=== PATIENT | male | born 1990 | race Caucasian/White ===

== ENCOUNTER 2021-02-14 14:36 | Inpatient (IN) | payer OTHER ==
[2021-02-14 17:53] LABS: Appearance,Urine Clear (Clear); Bilirubin,Urine Negative (Negative); Blood,Urine Negative (Negative); Color,Urine Light Yellow; Glucose,Urine (UA) Negative (Negative); Ketones,Urine Negative (Negative); Leukocyte Esterase,Urine Negative (Negative); Nitrite,Urine Negative (Negative); Protein,Urine Negative (Negative); Urobilinogen,Urine <2.0 mg/dL (<2.0)
[2021-02-14 18:02] LABS: Amphetamine Screen,Urine Not Detected (NotDetected); Barbiturate Screen,Urine Not Detected (NotDetected); Benzodiazepines Screen,Urine Not Detected (NotDetected); Cocaine Screen,Urine Not Detected (NotDetected); Methadone Screen, Urine Not Detected (NotDetected); Opiate Screen,Urine Not Detected (NotDetected); Oxycodone Screen, Urine Not Detected (NotDetected); Phencyclidine Screen,Urine Not Detected (NotDetected); Tricyclic Antidepressant,Urine Not Detected (NotDetected); Urn Cannabinoid Scrn Not Detected (NotDetected)
[2021-02-14] MEDS ORDERED: ACETAMINOPHEN TAB 325 MG TAB PO PRN (20:37)
[2021-02-14] MEDS ORDERED: LORazepam 1 MG TAB PO PRN (20:37)
[2021-02-14] MEDS ORDERED: MAGNESIUM HYDROXIDE 2,400 MG/10 ML CUP PO PRN (20:37)
[2021-02-14] MEDS ORDERED: MAG HYDROX/AL HYDROX/SIMETH 30 ML CUP PO PRN (20:37)
[2021-02-14] MEDS ORDERED: LORazepam 2 MG/ML INJ IM PRN (20:45)
[2021-02-14] MEDS ORDERED: haloperidoL 5 MG TAB PO PRN (20:47)
[2021-02-14] MEDS ORDERED: HALOPERIDOL LACTATE 5 MG/ML 1 ML VIAL IM PRN (20:47)
[2021-02-14] MEDS: NICOTINE 21MG/24HR PATCH TRANSDERM SCH (22:19)
--- NOTE | 2021-02-14 22:42 | ED ---
Psych HPI - General Chief Complaint: Psychiatric Symptoms Stated Complaint: Petition Time Seen by Provider: 02/14/21 14:40 Source: patient, police Mode of arrival: ambulatory - History of Present Illness Initial Comments: Patient is a 30-year-old male who presents to the emergency department petitioned by his mother. Police accompany the patient. Patient made some remarks last night while drinking. Stated he was suicidal without plan. 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 He does have a history of daily alcohol use. Patient does report that he uses alcohol to "cope". He is currently sober and denying suicidal ideations to me. Denies homicidal ideations. No history of drug use. Patient denies attempting to harm himself. No other alleviating, precipitating or modifying factors - Related Data Home Medications Medication Instructions Recorded Confirmed No Known Home Medications 02/14/21 02/14/21 Allergies Allergy/AdvReac Type Severity Reaction Status Date / Time No Known Allergies Allergy Verified 02/14/21 16:03 Review of Systems ROS Statement: Those systems with pertinent positive or pertinent negative responses have been documented in the HPI. ROS Other: All systems not noted in ROS Statement are negative. Past Medical History Past Medical History: No Reported History History of Any Multi-Drug Resistant Organisms: None Reported Past Surgical History: Orthopedic Surgery Additional Past Surgical History / Comment(s): trauma surgery from accident Past Anesthesia/Blood Transfusion Reactions: No Reported Reaction Past Psychological History: Anxiety Smoking Status: Current every day smoker Past Alcohol Use History: Daily Past Drug Use History: None Reported General Exam Limitations: no limitations General appearance: alert, in no apparent distress, other (desheveled) Head exam: Present: atraumatic, normocephalic, normal inspection Eye exam: Present: normal appearance, PERRL, EOMI. Absent: scleral icterus, conjunctival injection, periorbital swelling ENT exam: Present: normal exam, mucous membranes moist Neck exam: Present: normal inspection. Absent: tenderness, meningismus, lymphadenopathy Respiratory exam: Present: normal lung sounds bilaterally. Absent: respiratory distress, wheezes, rales, rhonchi, stridor Cardiovascular Exam: Present: regular rate, normal rhythm, normal heart sounds. Absent: systolic murmur, diastolic murmur, rubs, gallop, clicks GI/Abdominal exam: Present: soft, normal bowel sounds. Absent: distended, tenderness, guarding, rebound, rigid Extremities exam: Present: normal inspection, full ROM, normal capillary refill. Absent: tenderness, pedal edema, joint swelling, calf tenderness Back exam: Present: normal inspection Neurological exam: Present: alert, oriented X3, CN II-XII intact Psychiatric exam: Present: normal affect, normal mood Skin exam: Present: warm, dry, intact, normal color. Absent: rash Course Vital Signs 02/14/21 14:41 Temperature 98.8 F Pulse Rate 93 Respiratory 18 Rate Blood Pressure 165/87 O2 Sat by Pulse 97 Oximetry Medical Decision Making - Medical Decision Making Upon arrival patient is placed into room 8. A thorough history and physical exam was performed. Patient is evaluated by EPS and they determined that the patient requires inpatient placement. I did fill out a certification on the patient. Patient was taken to the floor in stable condition - Lab Data Result diagrams: 02/15/21 06:39 02/15/21 06:39 Lab Results 02/14/21 02/14/21 Range/Units 17:47 19:23 Urine Color Light Yellow Urine Appearance Clear (Clear) Urine pH 7.0 (5.0-8.0) Ur Specific [place] 1.000 L (1.001-1.035) Urine Protein Negative (Negative) Urine Glucose (UA) Negative (Negative) Urine Ketones Negative (Negative) Urine Blood Negative (Negative) Urine Nitrite Negative (Negative) Urine Bilirubin Negative (Negative) Urine Urobilinogen <2.0 (<2.0) mg/dL Ur Leukocyte Esterase Negative (Negative) Urine Opiates Screen Not Detected (NotDetected) Ur Oxycodone Screen Not Detected (NotDetected) Urine Methadone Screen Not Detected (NotDetected) Ur Propoxyphene Screen Not Detected (NotDetected) Ur Barbiturates Screen Not Detected (NotDetected) U Tricyclic Antidepress Not Detected (NotDetected) Ur Phencyclidine Scrn Not Detected (NotDetected) Ur Amphetamines Screen Not Detected (NotDetected) U Methamphetamines Scrn Not Detected (NotDetected) U Benzodiazepines Scrn Not Detected (NotDetected) Urine Cocaine Screen Not Detected (NotDetected) U Marijuana (THC) Screen Not Detected (NotDetected) Coronavirus (PCR) Not Detected (Not Detectd) Disposition Clinical Impression: Depression Disposition: TRANSFER TO PSYCH HOSP/UNIT Condition: Stable Is patient prescribed a controlled substance at d/c from ED?: No Decision to Admit Reason: Admit from EC
--- NOTE | 2021-02-15 02:43 | P.CONS ---
History of Present Illness - Reason for Consult Consult date: 02/15/21 - History of Present Illness Patient is a 30-year-old male with a PMH of EtOH abuse who was brought into the hospital by his mother after he was the patient due to some suicidal remarks. Patient was admitted to the mental health unit where he was seen and evaluated. He reports daily alcohol use, as much as a liter of hard liquor at a time. He denied alcohol withdrawal seizures or ever being hospitalized for his drinking. He reports that his last drink was earlier in the day. Denied additional complaints. Denied chest pain, shortness breath, fever, chills, cough, nausea, vomiting, abdominal pain. Review of Systems Pertinent positives and negatives as discussed in HPI, a complete review of systems was performed and all other systems are negative. Past Medical History Past Medical History: No Reported History History of Any Multi-Drug Resistant Organisms: None Reported Past Surgical History: Orthopedic Surgery Additional Past Surgical History / Comment(s): trauma surgery from accident Past Anesthesia/Blood Transfusion Reactions: No Reported Reaction Past Psychological History: Anxiety Smoking Status: Current every day smoker Past Alcohol Use History: Daily Past Drug Use History: None Reported Medications and Allergies Home Medications Medication Instructions Recorded Confirmed Type No Known Home Medications 02/14/21 02/14/21 History Allergies Allergy/AdvReac Type Severity Reaction Status Date / Time No Known Allergies Allergy Verified 02/14/21 16:03 Physical Exam Vitals: Vital Signs Temp Pulse Pulse Resp BP BP Pulse Ox 02/14/21 21:31 98.6 F 79 18 143/81 02/14/21 14:41 98.8 F 93 18 165/87 97 Intake and Output 02/14/21 02/14/21 02/15/21 14:59 22:59 06:59 Other: Weight 75.75 kg 75 kg General: Disheveled male, non toxic, no distress, appears older than stated age, normal weight Derm: no unusual rashes/lesions no unusual ecchymoses, warm, dry Head: atraumatic, normocephalic, symmetric Eyes: EOMI, no lid lag, anicteric sclera, pupils equal round reactive to light ENT: Nose and ears atraumatic, no thrush, no pharyngeal erythema Neck: No thyromegaly, no cervical lymphadenopathy, trachea midline, supple Mouth: no lip lesion, mucus membranes moist Cardiovascular: S1S2 reg, no murmur, positive posterior tibial pulse bilateral, no edema, capillary refill less than 2 seconds Lungs: CTA bilateral, no rhonchi, no rales , no accessory muscle use Abdominal: soft, nontender to palpation, no guarding, no appreciable organomegaly, normal bowel sounds Ext: no gross muscle atrophy, muscle strength 5 out of 5 in all 4 extremities grossly, no contractures, Neuro: CN II-XI grossly intact, light touch intact all 4 extremities, mild outstretched hand tremor Psych: Alert, oriented, appropriate affect Results Labs: Abnormal Lab Results - Last 24 Hours (Table) 02/14/21 Range/Units 17:47 Ur Specific [place] 1.000 L (1.001-1.035) Assessment and Plan Plan: EtOH abuse, impending withdrawal -C/w [facility] protocol -Start Librium -Monitor electrolytes -Encourage oral fluid intake -Thiamine, MV -Advised on the importance of cessation Depression and suicidal ideation -As per psychiatry Thank you for allowing us to participate in the care of this patient. We will follow peripherally. Do not hesitate to contact us with questions. Someone can be reached from the [facility] hospitalist group at all hours of the day at [phone].
[2021-02-15 07:22] LABS: Basophils # (A) 0.1 k/uL (0-0.2); Basophils % (A) 1 %; Eosinophils # (A) 0.4 k/uL (0-0.7); Eosinophils % (A) 7 %; HCT 48.2 % (39.0-53.0); HGB 16.8 gm/dL (13.0-17.5); Lymphocytes # (A) 2.2 k/uL (1.0-4.8); Lymphocytes % (A) 36 %; MCH 32.3 pg (25.0-35.0); MCHC 34.8 g/dL (31.0-37.0); MCV 92.9 fL (80.0-100.0); Mean Platelet Volume 7.2; Monocytes # (A) 0.6 k/uL (0-1.0); Monocytes % (A) 10 %; Neutrophils # (A) 2.7 k/uL (1.3-7.7); Neutrophils % (A) 44 %; Platelet Count 215 k/uL (150-450); RBC 5.19 m/uL (4.30-5.90); RDW 12.6 % (11.5-15.5); WBC 6.2 k/uL (3.8-10.6)
[2021-02-15 07:47] LABS: ALT 9 U/L (4-49); AST 33 U/L (17-59); African American GFR (CKD) >90 (>60 ml/min/1.73 sqM); Albumin 4.3 g/dL (3.5-5.0); Alkaline Phosphatase 101 U/L (38-126); Anion Gap 7 mmol/L; Blood Urea Nitrogen 9 mg/dL (9-20); Calcium 9.7 mg/dL (8.4-10.2); Carbon Dioxide 28 mmol/L (22-30); Chloride 102 mmol/L (98-107); Glucose 93 mg/dL (74-99); Magnesium 2.1 mg/dL (1.6-2.3); Non-African American GFR(CKD) >90 (>60 ml/min/1.73 sqM); Potassium 4.2 mmol/L (3.5-5.1); Sodium 137 mmol/L (137-145); Total Bilirubin 1.3 mg/dL (0.2-1.3); Total Protein 6.8 g/dL (6.3-8.2)
[2021-02-15] MEDS: MULTIVITAMINS, THERA 1 EACH TAB PO SCH (07:52)
[2021-02-15] MEDS: THIAMINE 100 MG TAB PO SCH (07:52)
[2021-02-15] MEDS: NICOTINE 21MG/24HR PATCH TRANSDERM SCH (07:52)
[2021-02-15 07:57] VITALS: BMI 22.6
[2021-02-15] MEDS ORDERED: chlordiazePOXIDE 25 MG CAP PO SCH ×2 (09:00→13:00)
[2021-02-15] MEDS: QUEtiapine 25 MG TAB PO SCH (12:24)
[2021-02-15] MEDS ORDERED: hydrOXYzine pamoate 25 MG CAP PO PRN (13:19)
--- NOTE | 2021-02-15 13:19 | P.HP ---
Psychiatric H&P - . H&P Date: 02/15/21 History & Physical: Allergies Allergy/AdvReac Type Severity Reaction Status Date / Time No Known Allergies Allergy Verified 02/14/21 16:03 Vital Signs Temp 97.3 F L 02/15/21 07:53 Pulse 130 H 02/15/21 07:53 Resp 18 02/14/21 21:31 BP 136/83 02/15/21 07:53 Pulse Ox 97 02/14/21 14:41 Intake & Output 02/14/21 02/15/21 02/15/21 18:59 06:59 18:59 Weight 75.75 kg 75 kg 75.75 kg Laboratory Last Values WBC 6.2 k/uL (3.8-10.6) 02/15/21 06:39 RBC 5.19 m/uL (4.30-5.90) 02/15/21 06:39 Hgb 16.8 gm/dL (13.0-17.5) 02/15/21 06:39 Hct 48.2 % (39.0-53.0) 02/15/21 06:39 MCV 92.9 fL (80.0-100.0) 02/15/21 06:39 MCH 32.3 pg (25.0-35.0) 02/15/21 06:39 MCHC 34.8 g/dL (31.0-37.0) 02/15/21 06:39 RDW 12.6 % (11.5-15.5) 02/15/21 06:39 Plt Count 215 k/uL (150-450) 02/15/21 06:39 MPV 7.2 02/15/21 06:39 Neutrophils % 44 % 02/15/21 06:39 Lymphocytes % 36 % 02/15/21 06:39 Monocytes % 10 % 02/15/21 06:39 Eosinophils % 7 % 02/15/21 06:39 Basophils % 1 % 02/15/21 06:39 Neutrophils # 2.7 k/uL (1.3-7.7) 02/15/21 06:39 Lymphocytes # 2.2 k/uL (1.0-4.8) 02/15/21 06:39 Monocytes # 0.6 k/uL (0-1.0) 02/15/21 06:39 Eosinophils # 0.4 k/uL (0-0.7) 02/15/21 06:39 Basophils # 0.1 k/uL (0-0.2) 02/15/21 06:39 Sodium 137 mmol/L (137-145) 02/15/21 06:39 Potassium 4.2 mmol/L (3.5-5.1) 02/15/21 06:39 Chloride 102 mmol/L (98-107) 02/15/21 06:39 Carbon Dioxide 28 mmol/L (22-30) 02/15/21 06:39 Anion Gap 7 mmol/L 02/15/21 06:39 BUN 9 mg/dL (9-20) 02/15/21 06:39 Creatinine 1.07 mg/dL (0.66-1.25) 02/15/21 06:39 Est GFR (CKD-EPI)AfAm >90 (>60 ml/min/1.73 sqM) 02/15/21 06:39 Est GFR (CKD-EPI)NonAf >90 (>60 ml/min/1.73 sqM) 02/15/21 06:39 Glucose 93 mg/dL (74-99) 02/15/21 06:39 Calcium 9.7 mg/dL (8.4-10.2) 02/15/21 06:39 Magnesium 2.1 mg/dL (1.6-2.3) 02/15/21 06:39 Total Bilirubin 1.3 mg/dL (0.2-1.3) 02/15/21 06:39 AST 33 U/L (17-59) 02/15/21 06:39 ALT 9 U/L (4-49) 02/15/21 06:39 Alkaline Phosphatase 101 U/L (38-126) 02/15/21 06:39 Total Protein 6.8 g/dL (6.3-8.2) 02/15/21 06:39 Albumin 4.3 g/dL (3.5-5.0) 02/15/21 06:39 TSH 2.220 mIU/L (0.465-4.680) 02/15/21 06:39 Urine Color Light Yellow 02/14/21 17:47 Urine Appearance Clear (Clear) 02/14/21 17:47 Urine pH 7.0 (5.0-8.0) 02/14/21 17:47 Ur Specific [place] 1.000 (1.001-1.035) L 02/14/21 17:47 Urine Protein Negative (Negative) 02/14/21 17:47 Urine Glucose (UA) Negative (Negative) 02/14/21 17:47 Urine Ketones Negative (Negative) 02/14/21 17:47 Urine Blood Negative (Negative) 02/14/21 17:47 Urine Nitrite Negative (Negative) 02/14/21 17:47 Urine Bilirubin Negative (Negative) 02/14/21 17:47 Urine Urobilinogen <2.0 mg/dL (<2.0) 02/14/21 17:47 Ur Leukocyte Esterase Negative (Negative) 02/14/21 17:47 Urine Opiates Screen Not Detected (NotDetected) 02/14/21 17:47 Ur Oxycodone Screen Not Detected (NotDetected) 02/14/21 17:47 Urine Methadone Screen Not Detected (NotDetected) 02/14/21 17:47 Ur Propoxyphene Screen Not Detected (NotDetected) 02/14/21 17:47 Ur Barbiturates Screen Not Detected (NotDetected) 02/14/21 17:47 U Tricyclic Antidepress Not Detected (NotDetected) 02/14/21 17:47 Ur Phencyclidine Scrn Not Detected (NotDetected) 02/14/21 17:47 Ur Amphetamines Screen Not Detected (NotDetected) 02/14/21 17:47 U Methamphetamines Scrn Not Detected (NotDetected) 02/14/21 17:47 U Benzodiazepines Scrn Not Detected (NotDetected) 02/14/21 17:47 Urine Cocaine Screen Not Detected (NotDetected) 02/14/21 17:47 U Marijuana (THC) Screen Not Detected (NotDetected) 02/14/21 17:47 Coronavirus (PCR) Not Detected (Not Detectd) 02/14/21 19:23 02/15/21 13:07 IDENTIFYING DATA: Patient is a 30-year-old male who is currently engaged has 1 son and his currently unemployed. HPI: Patient presented to the hospital yesterday and was brought in by the police as he was petitioned by his mother. According to petition mother had claimed that patient had made threats to harm himself and also has access to guns. According to ER report patient was suicidal and mother had called the police on him to bring him into the hospital. Patient apparently has been drinking alcohol daily. Patient's UDS and UA were negative. Patient was seen today and agreeable to speak to newspaper writer in the office and appeared to have poor hygiene and grooming. Patient was fairly irritable and agitated during conversation and repeatedly asked to be discharged. He had poor insight into his need for treatment and his condition. He was fairly tangential and had racing thoughts. He spoke about having several stressors recently in his life including not having a job for the past few months and also dealing with re lationship issues with his fiance and her mother. He claims that his mother "took away my rights" by putting him in the hospital and states that what she wrote in the petition was false. He claims that "she's twisting the story" and was fairly angry and upset about being admitted. He claims that he is drinking alcohol heavily for the past year approximately 1-6 beers a day and also takes several shots if he is drinking liquor. He claims that he is having withdrawal symptoms including anxiety and mild tremors. He states that he is using alcohol to "cope with my stressors". He claims that his mood is "agitated" and admits to irritability. He states that he has been sleeping "on and off" has a fair appetite. He does admit to having racing thoughts. He claims that he cannot trust anyone at this time including [facility] and at one point during the interview he turned to the security camera in the corner and gave it the middle finger. Patient denies any current suicidal or homicidal ideations intent or plan. At this time patient denies any auditory or visual hallucinations. Patient admits to using no recreational drugs however he does use cigarettes and alcohol as noted above. PAST PSYCHIATRIC HISTORY: Patient was fairly guarded about his psychiatric history. He states that he has been on medications in the past however does not remember which ones. He did state that he was admitted to a psychiatric hospital when he was 17 however cannot remember where. Patient denies any psychiatric outpatient follow-up. Patient denies any history of suicide attempts in the past. PMH:denies ALLERGIES: as per EMR CHEMICAL DEPENDENCY HISTORY: as per HPI FAMILY PSYCHIATRIC/SUBSTANCE USE HISTORY: He states that his father has bipolar disorder SOCIAL HISTORY: Patient was born and raised in [place], [place]. He states that he completed high school and also did trade school. He states that he has some drinking related offenses and spent a few days in residential in the past. He claims he has one son is currently engaged and is unemployed and used to be a catering truck driver. MENTAL STATUS EXAM: General Appearance: Patient appears to be tall, thin, stated age is alert, irritable and agitated at times. Long vaz, Patient appears to have poor hygiene and grooming. Behavior: Patient is seated, agitated and upset. Speech: Patient's speech is loud at times. Rambles. Mood/Affect: Patient reports their mood is "fine", affect is incongruent and labile Suicidality/Homicidality: Patient denies having any homicidal ideation intent or plan. Denies any suicidal ideations intent or plan Perceptions: Patient denies any visual hallucinations and denies any auditory hallucinations Though content/process: Rambles, tangential, preoccupied with discharge and minimizing his need for treatment. Not endorsing any delusions. Memory and concentration: AOX3, grossly intact for the purposes of this session. Can spell "WORLD" backwards Judgment and insight: poor STRENGTHS/WEAKNESSES: strength is that patient is resilient. Weakness is that patient has poor judgment and is impulsive INTELLECT: average IMPRESSIONS: Mood disorder unspecified, rule out bipolar disorder versus substance induced mood disorder Alcohol use disorder, currently in withdrawal Nicotine dependence PLAN: -Patient is admitted under involuntary status to MHU for stabilization of psychiatric symptoms and safety. Patient has signed medication consent and is placed in patient's chart. A second certification was completed and along with petition will be filed for court. -Medications : Will start patient on Librium 20 mg 4 times a day for alcohol withdrawal, this can be tapered over the weekend. Seroquel 25 mg daily +50 mg daily at bedtime for mood stabilization. Vistaril when necessary for anxiety. -Ativan and Haldol PRN for agitation/aggression -Started thiamine, MVM for etoh use -CIWA protocol with Ativan PRN for ETOH withdrawal -Patient was counselled on substance abuse and desired to cut back on use -Patient was informed of the risks, benefits and side effects of the medication and patient verbally consented to taking the medications. Patient signed med consent form and was placed in chart. -Internal Medicine consult to perform medical evaluation and physical. -NRT - nicotine patch -SW on board for discharge planning. Encourage patient to participate in groups to work on coping skills. Will await deferral and court date.
[2021-02-15] MEDS: QUEtiapine 50 MG TAB PO SCH (21:19)
[2021-02-16] MEDS: NICOTINE 21MG/24HR PATCH TRANSDERM SCH (08:43)
[2021-02-16] MEDS: QUEtiapine 25 MG TAB PO SCH (08:43)
[2021-02-16] MEDS: THIAMINE 100 MG TAB PO SCH (08:43)
[2021-02-16] MEDS: MULTIVITAMINS, THERA 1 EACH TAB PO SCH (08:43)
[2021-02-16] MEDS: FOLIC ACID 1 MG TAB PO SCH (08:43)
--- NOTE | 2021-02-16 15:51 | P.PN ---
Progress Note - Text Progress Note Date: 02/16/21 Clinical Problems: Unspecified mood disorder, alcohol induced mood disorder, rule out bipolar disorder current episode depressed, alcohol use disorder severe, alcohol withdrawal, rule out alcohol withdrawal delirium, tobacco use disorder Interim history: I reviewed the medical record and interviewed the patient. He is 30-year-old single male admitted to psychiatric unit involuntarily with a petition completed by his mother documenting suicidal ideation. He minimizes circumstances leading to this hospitalization and repeatedly denied that he had attempted suicide. He gave a circumstantial and disjointed explanation where he was talking about suicide as a way of prove to himself that he is not suicidal. He also minimizes severity of his alcohol use although during the conversation it was apparent that much of his interpersonal and employment difficulties are related to his alcohol use. He denies that he has thoughts of suicide or self-harm. He denied wishes. He denied feeling depressed. He feels anxious and expressed concern about how others perceive him and described his struggles with expressing himself in a manner that others would understand him. He complained of some sedation from the initial doses of Seroquel. He denies alcohol withdrawal symptoms. His CIWA scores has ranged from 0-5 consistent with minimal alcohol withdrawal symptoms. Mental status exam: He presented as a tall, thin casually groomed male who was pleasant on approach. He made eye contact and attended to the interview. He was somewhat restless but showed no abnormal involuntary movements. His speech was spontaneous with slight increase in rate and rhythm. He was anxious. He denies suicidal ideation, wishes or homicidal ideation. Denied feeling hopeless, helpless or worthless. He ruminated about the circumstances that led to this hospitalization and obsessed on how we are perceiving him. He did not express ideas reference, paranoid ideation or delusions. Her sticking was concrete and associations were coherent and logical. He denied hallucinations did not appear to responding to internal stimuli. Assessment: He is denying the severity of circumstances looked this hospitalization but appears anxious and restless. Plan: Continue inpatient treatment. Safety precautions. Continue Librium 20 mg 4 times a day, Seroquel 25 mg daily and 50 mg at bedtime, multivitamins, folic acid and vitamin B1. Haldol and/or Ativan for anxiety, agitation acute psychosis. Continue to monitor for signs and symptoms of alcohol withdrawal. Encourage participation in therapeutic groups and activities. Evaluate clinical status response to treatment daily basis.
[2021-02-16] MEDS: QUEtiapine 50 MG TAB PO SCH (22:00)
[2021-02-17] MEDS: NICOTINE 21MG/24HR PATCH TRANSDERM SCH (08:35)
[2021-02-17] MEDS: FOLIC ACID 1 MG TAB PO SCH (08:36)
[2021-02-17] MEDS: QUEtiapine 25 MG TAB PO SCH (08:36)
[2021-02-17] MEDS: MULTIVITAMINS, THERA 1 EACH TAB PO SCH (08:36)
[2021-02-17] MEDS: THIAMINE 100 MG TAB PO SCH (08:38)
--- NOTE | 2021-02-17 15:55 | P.PN ---
Progress Note - Text Progress Note Date: 02/17/21 Clinical Problems: Unspecified mood disorder, alcohol induced mood disorder, rule out bipolar disorder current episode depressed, alcohol use disorder severe, alcohol withdrawal, rule out alcohol withdrawal delirium, tobacco use disorder Interim history: I reviewed the medical record and interviewed the patient. He denied feeling depressed or having thoughts of or suicide. He continues to maintain that he was not suicidal and that her actions were misinterpreted. His only concern was discharge and is concerned about work and finances. He denies alcohol withdrawal symptoms. His CIWA scores have been 0 over the last 24 hours. He is attending therapeutic groups and activities. He is posed no management problem and had no episodes of behavioral dyscontrol. Mental status exam: He presented as a tall, thin casually groomed male who was pleasant on approach. He made eye contact and attended to the interview. He was somewhat restless but showed no abnormal involuntary movements. His speech was spontaneous with slight increase in rate and rhythm. He was anxious. He denies suicidal ideation, wishes or homicidal ideation. He denied feeling hopeless, helpless or worthless. He continues to ruminate about the circumstances that led to this hospitalization and obsessed on how we are perceiving him. He did not express ideas reference, paranoid ideation or delusions. Her sticking was concrete and associations were coherent and logical. He denied hallucinations did not appear to responding to internal stimuli. Assessment: He is having no symptoms of alcohol withdrawal. He continues to deny that he expressed true suicide attempt. I don't see indication for prescription of antidepressant at this time. Plan: Continue inpatient treatment. Safety precautions. Continue Librium 20 mg 4 times a day, Seroquel 25 mg daily and 50 mg at bedtime, multivitamins, folic acid and vitamin B1. Haldol and/or Ativan for anxiety, agitation acute psychosis. Continue to monitor for signs and symptoms of alcohol withdrawal. Encourage participation in therapeutic groups and activities. Evaluate clinical status response to treatment daily basis.
[2021-02-17] MEDS: QUEtiapine 50 MG TAB PO SCH (20:52)
[2021-02-18 07:09] VITALS: RESP 16
[2021-02-18] MEDS: MULTIVITAMINS, THERA 1 EACH TAB PO SCH (07:49)
[2021-02-18] MEDS: THIAMINE 100 MG TAB PO SCH (07:49)
[2021-02-18] MEDS: NICOTINE 21MG/24HR PATCH TRANSDERM SCH (07:49)
[2021-02-18] MEDS: QUEtiapine 25 MG TAB PO SCH (07:49)
[2021-02-18] MEDS: FOLIC ACID 1 MG TAB PO SCH (07:49)
--- NOTE | 2021-02-18 10:26 | P.PN ---
Progress Note - Text Progress Note Date: 02/18/21 Interval History: Patient was seen taking part in group this morning and was directable and agre eable to speak with commercial underwriter in the office. Patient spoke briefly about group and also by this weekend and states that he is doing better. He continues to ramble and is tangential however is more logical and appropriate today. He states that he is feeling calmer and claims that he spoke with his father and his mother over the phone over the weekend. He claims that he is an able to handle a situa tion a little bit better and did not get too stressed out when his father told him that she had not been feeding his cows enough hay. Patient states that he was able to calm down and not worry about it during the day. He states that the Seroquel has been helping him sleep throughout the night and claims that the first day he took it he was feeling fairly sedated during the day however now feels a bit better. He denies any current anxiety today. He states that his alcohol withdrawal symptoms and been fairly mild. He claims that he has been eating fairly. At this time patient denies any suicidal or homical ideations, intent or plan. Patient denies any auditory, visual hallucinations and denies any paranoia or delusions. Patient denies any side effects from the medications and has been compliant with meds. Mental Status Exam: General Appearance: Patient appears to be tall, thin, stated age is alert, less irritable today and more appropriate. Long vaz, Patient appears to have im proving hygiene and grooming. Behavior: Patient is seated, no agitation today. Speech: Patient's speech is nonpressured. Rambles. Mood/Affect: Patient reports their mood is "better", affect is congruent and less labile Suicidality/Homicidality: Patient denies having any homicidal ideation intent or plan. Denies any suicidal ideations intent or plan Perceptions: Patient denies any visual hallucinations and denies any auditory hallucinations Though content/process: Rambles, tangential, Not endorsing any delusions. Memory and concentration: AOX3, grossly intact for the purposes of this session Judgment and insight: Improving mildly Assessment Mood disorder unspecified, rule out bipolar disorder versus substance induced mood disorder Alcohol use disorder, currently in withdrawal Nicotine dependence Plan: -Patient continues to meet criteria for inpatient psychiatric admission for symptom stabilization and safety. Patient has not signed adult voluntary form and was placed in patient's chart. -Medications: Will decrease Librium 10 mg 4 times a day for alcohol withdrawal and continue to taper. continue with Seroquel 25 mg daily +50 mg daily at bedtime for mood stabilization. Vistaril when necessary for anxiety. -When necessary Ativan and Haldol for agitation/aggression. -thiamine, MVM for etoh use -CIWA protocol with Ativan PRN for ETOH withdrawal -NRT - nicotine patch -SW on board for discharge planning. Encouraged the patient to participate in milieu. Still awaiting deferral and full court hearing date. likely d/c in 1-2 days back home.
[2021-02-18] MEDS: QUEtiapine 50 MG TAB PO SCH (21:22)
[2021-02-19 04:19] VITALS: BP 124/79; PULSE 84; TEMP 97.3
[2021-02-19] MEDS: QUEtiapine 25 MG TAB PO SCH (08:35)
[2021-02-19] MEDS: FOLIC ACID 1 MG TAB PO SCH (08:35)
[2021-02-19] MEDS: MULTIVITAMINS, THERA 1 EACH TAB PO SCH (08:35)
[2021-02-19] MEDS: THIAMINE 100 MG TAB PO SCH (08:35)
[2021-02-19] MEDS: NICOTINE 21MG/24HR PATCH TRANSDERM SCH (08:35)
--- NOTE | 2021-02-19 10:02 | P.DS ---
Providers Date of admission: 02/14/21 20:29 Expected date of discharge: 02/19/21 Attending physician: Rajinder Frank MD Consults: 02/14/21 20:37 Consult Physician Routine Consulting Provider: Thiago Bhandari Consult Reason/Comments: medical management/H&P Do you want consulting provider notified?: Yes Primary care physician: Stated None - Discharge Diagnosis(es) (1) Unspecified mood [affective] disorder Current Visit: Yes Status: Acute Priority: High (2) Alcohol use disorder Current Visit: Yes Status: Acute Priority: High (3) Nicotine dependence Current Visit: Yes Status: Acute Priority: Low Hospital Course: Admission HPI: Admission note was completed by public relations writer "Patient is a 30-year-old male who is currently engaged has 1 son and his currently unemployed. Patient presented to the hospital yesterday and was brought in by the police as he was petitioned by his mother. According to petition mother had claimed that patient had made threats to harm himself and also has access to guns. According to ER report patient was suicidal and mother had called the police on him to bring him into the hospital. Patient apparently has been drinking alcohol daily. Patient's UDS and UA were negative. Patient was seen today and agreeable to speak to public relations writer in the office and appeared to have poor hygiene and grooming. Patient was fairly irritable and agitated during conversation and repeatedly asked to be discharged. He had poor insight into his need for treatment and his condition. He was fairly tangential and had racing thoughts. He spoke about having several stressors recently in his life including not having a job for the past few months and also dealing with relationship issues with his fiance and her mother. He claims that his mother "took away my rights" by putting him in the hospital and states that what she wrote in the petition was false. He claims that "she's twisting the story" and was fairly angry and upset about being admitted. He claims that he is drinking alcohol heavily for the past year approximately 1-6 beers a day and also takes several shots if he is drinking liquor. He claims that he is having withdrawal symptoms including anxiety and mild tremors. He states that he is using alcohol to "cope with my stressors". He claims that his mood is "agitated" and admits to irritability. He states that he has been sleeping "on and off" has a fair appetite. He does admit to having racing thoughts. He claims that he cannot trust anyone at this time including [facility] and at one point during the interview he turned to the security camera in the corner and gave it the middle finger. Patient denies any current suicidal or homicidal ideations intent or plan. At this time patient denies any auditory or visual hallucinations. Patient admits to using no recreational drugs however he does use cigarettes and alcohol as noted above." Hospital course: Upon admission to the unit patient was initially irritable and agitated and made suicidal statements. Patient was however admitted involuntarily and met with his claim attorney on 02/18/21 and signed a deferral and agreed with treatment. Patient got along well with other patients on the unit and followed unit protocol. Patient was compliant with the medications and denied any side effects throughout hospital course. Patient was started on Seroquel 25 mg daily +50 mg daily at bedtime for mood stabilization/insomnia. Patient was placed on Librium scheduled with a taper over his hospitalization for alcohol withdrawal. patient was also on CIWA protocol with ativan prn for etoh withdrawal. Patient spoke of his stressors and engaged in therapy both group and individual. Patient was also seen by medical team for history and physical exam. Throughout the course of the hospitalization patient gradually improved with regards to mood lability, anxiety, sleep and became more future oriented with improved insight and judgment. On the day of discharge patient denied any suicidal or homicidal ideations intent or plan denied any auditory or visual hallucinations. Patient endorsed wanting to live for his health and family. The patient does have guns at home however patient claims he will be turning them over to his parents for safekeeping. Patient denied any paranoia and did not endorse any delusions. Patient does have a significant history of substance abuse and was counseled on abstaining from all substances including alcohol and marijuana. Patient was offered however declined inpatient substance-abuse rehab. Patient elected to do outpatient substance use treatment program through [facility]. Patient was also counseled on the medications and need for regular compliance and was encouraged to follow-up with their outpatient appointment for mental health and also for primary care. Prior to discharge a family meeting will be arranged by social service agency director to answer any questions and ensure safety upon discharge. box worker also to ensure that patients guns are kept locked away and safe. Mental status exam: General Appearance: Patient appears to be tall and thin stated age is alert, pleasant, and cooperative. Patient is in no acute distress and has improved hygiene and grooming. Long vaz. Behavior: Patient is calmly seated without any agitated behavior. Speech: Patient's speech is fluent and nonpressured. Mood/Affect: Patient reports their mood is "better", affect is congruent and euthymic. Suicidality/Homicidality: Patient denies having any suicidal or homicidal ideation intent or plan. Perceptions: Patient denies any auditory or visual hallucinations. Though content/process: There is no evidence of any delusional thought content and thought process is linear and goal-directed. more future oriented Memory and concentration: AOX3, grossly intact for the purposes of this session. Can spell "WORLD" backwards correctly. Judgment and insight: improved with guarded prognosis Impression: Mood disorder unspecified, rule out bipolar disorder versus substance-induced mood disorder Alcohol use disorder Nicotine dependence Plan: -Continue with discharge today as patient has improved and stabilized psychiatrically and is not currently an imminent threat to himself and/or others. -Continue medications: Seroquel 25 mg daily +50 mg daily at bedtime for mood stabilization. -Patient was counseled on the need for medication compliance and appropriate follow-up at mental health and also primary care for medical issues. Patient ve rbalized understanding and agreed. -Social work to arrange for and conduct family meeting to ensure safety upon discharge and answer any questions/concerns. Social work also to arrange for patients follow up appointments with [facility] for psychiatric care along with follow up with primary care provider. -Patient counseled on abstaining from recreational drugs and marijuana and alcohol. Was informed/educated on the adverse effects on their physical and mental health. Patient verbally agreed and understood. Patient was offered substance abuse treatment however declined at this time. -Patient was instructed to return to the hospital or seek immediate medical care if their psychiatric or medical symptoms do worsen or reoccur. Allergies Allergy/AdvReac Type Severity Reaction Status Date / Time No Known Allergies Allergy Verified 02/14/21 16:03 Laboratory Results WBC 6.2 k/uL (3.8-10.6) 02/15/21 06:39 RBC 5.19 m/uL (4.30-5.90) 02/15/21 06:39 Hgb 16.8 gm/dL (13.0-17.5) 02/15/21 06:39 Hct 48.2 % (39.0-53.0) 02/15/21 06:39 MCV 92.9 fL (80.0-100.0) 02/15/21 06:39 MCH 32.3 pg (25.0-35.0) 02/15/21 06:39 MCHC 34.8 g/dL (31.0-37.0) 02/15/21 06:39 RDW 12.6 % (11.5-15.5) 02/15/21 06:39 Plt Count 215 k/uL (150-450) 02/15/21 06:39 MPV 7.2 02/15/21 06:39 Neutrophils % 44 % 02/15/21 06:39 Lymphocytes % 36 % 02/15/21 06:39 Monocytes % 10 % 02/15/21 06:39 Eosinophils % 7 % 02/15/21 06:39 Basophils % 1 % 02/15/21 06:39 Neutrophils # 2.7 k/uL (1.3-7.7) 02/15/21 06:39 Lymphocytes # 2.2 k/uL (1.0-4.8) 02/15/21 06:39 Monocytes # 0.6 k/uL (0-1.0) 02/15/21 06:39 Eosinophils # 0.4 k/uL (0-0.7) 02/15/21 06:39 Basophils # 0.1 k/uL (0-0.2) 02/15/21 06:39 Sodium 137 mmol/L (137-145) 02/15/21 06:39 Potassium 4.2 mmol/L (3.5-5.1) 02/15/21 06:39 Chloride 102 mmol/L (98-107) 02/15/21 06:39 Carbon Dioxide 28 mmol/L (22-30) 02/15/21 06:39 Anion Gap 7 mmol/L 02/15/21 06:39 BUN 9 mg/dL (9-20) 02/15/21 06:39 Creatinine 1.07 mg/dL (0.66-1.25) 02/15/21 06:39 Est GFR (CKD-EPI)AfAm >90 (>60 ml/min/1.73 sqM) 02/15/21 06:39 Est GFR (CKD-EPI)NonAf >90 (>60 ml/min/1.73 sqM) 02/15/21 06:39 Glucose 93 mg/dL (74-99) 02/15/21 06:39 Calcium 9.7 mg/dL (8.4-10.2) 02/15/21 06:39 Magnesium 2.1 mg/dL (1.6-2.3) 02/15/21 06:39 Total Bilirubin 1.3 mg/dL (0.2-1.3) 02/15/21 06:39 AST 33 U/L (17-59) 02/15/21 06:39 ALT 9 U/L (4-49) 02/15/21 06:39 Alkaline Phosphatase 101 U/L (38-126) 02/15/21 06:39 Total Protein 6.8 g/dL (6.3-8.2) 02/15/21 06:39 Albumin 4.3 g/dL (3.5-5.0) 02/15/21 06:39 TSH 2.220 mIU/L (0.465-4.680) 02/15/21 06:39 Urine Color Light Yellow 02/14/21 17:47 Urine Appearance Clear (Clear) 02/14/21 17:47 Urine pH 7.0 (5.0-8.0) 02/14/21 17:47 Ur Specific Ovid 1.000 (1.001-1.035) L 02/14/21 17:47 Urine Protein Negative (Negative) 02/14/21 17:47 Urine Glucose (UA) Negative (Negative) 02/14/21 17:47 Urine Ketones Negative (Negative) 02/14/21 17:47 Urine Blood Negative (Negative) 02/14/21 17:47 Urine Nitrite Negative (Negative) 02/14/21 17:47 Urine Bilirubin Negative (Negative) 02/14/21 17:47 Urine Urobilinogen <2.0 mg/dL (<2.0) 02/14/21 17:47 Ur Leukocyte Esterase Negative (Negative) 02/14/21 17:47 Urine Opiates Screen Not Detected (NotDetected) 02/14/21 17:47 Ur Oxycodone Screen Not Detected (NotDetected) 02/14/21 17:47 Urine Methadone Screen Not Detected (NotDetected) 02/14/21 17:47 Ur Propoxyphene Screen Not Detected (NotDetected) 02/14/21 17:47 Ur Barbiturates Screen Not Detected (NotDetected) 02/14/21 17:47 U Tricyclic Antidepress Not Detected (NotDetected) 02/14/21 17:47 Ur Phencyclidine Scrn Not Detected (NotDetected) 02/14/21 17:47 Ur Amphetamines Screen Not Detected (NotDetected) 02/14/21 17:47 U Methamphetamines Scrn Not Detected (NotDetected) 02/14/21 17:47 U Benzodiazepines Scrn Not Detected (NotDetected) 02/14/21 17:47 Urine Cocaine Screen Not Detected (NotDetected) 02/14/21 17:47 U Marijuana (THC) Screen Not Detected (NotDetected) 02/14/21 17:47 Coronavirus (PCR) Not Detected (Not Detectd) 02/14/21 19:23 Vital Signs Temp 97.3 F L 02/19/21 04:18 Pulse 84 02/19/21 04:18 Resp 16 02/19/21 04:18 BP 124/79 02/19/21 04:18 Pulse Ox 95 02/19/21 04:18 Patient Condition at Discharge: Stable Plan - Discharge Summary Discharge Rx Participant: No New Discharge Prescriptions: New Folic Acid 1 mg PO DAILY 30 Days tab QUEtiapine [SEROquel] 25 mg PO DAILY 30 Days tab Nicotine 21Mg/24Hr Patch [Habitrol] 1 patch TRANSDERM DAILY 14 Days patch Multivitamins, Thera [Multivitamin (formulary)] 1 each PO DAILY 30 Days tab QUEtiapine [SEROquel] 50 mg PO HS 30 Days tab Thiamine [Vitamin B-1] 100 mg PO DAILY 30 Days tab Discharge Medication List Folic Acid 1 mg PO DAILY 30 Days tab 02/19/21 [Rx] Multivitamins, Thera [Multivitamin (formulary)] 1 each PO DAILY 30 Days tab 02/19/21 [Rx] Nicotine 21Mg/24Hr Patch [Habitrol] 1 patch TRANSDERM DAILY 14 Days patch 02/19/21 [Rx] QUEtiapine [SEROquel] 25 mg PO DAILY 30 Days tab 02/19/21 [Rx] QUEtiapine [SEROquel] 50 mg PO HS 30 Days tab 02/19/21 [Rx] Thiamine [Vitamin B-1] 100 mg PO DAILY 30 Days tab 02/19/21 [Rx] Follow up Appointment(s)/Referral(s): None,Stated [Primary Care Provider] - 1 Week Activity/Diet/Wound Care/Special Instructions: Activity and diet as tolerated. Avoid the use of street drugs and alcohol. Take all medications as prescribed. When you are in need of refills on your medicati ons please contact your medical provider and/or outpatient psychiatrist to have this done. Please go to scheduled outpatient appointment for aftercare treatment. If symptoms return or become worse, call the crisis line at and/or go to the nearest emergency room for evaluation. Discharge Disposition: HOME SELF-CARE
--- NOTE | 2021-02-19 11:28 | P.PN ---
Subjective Progress Note Date: 02/19/21 Hospital course: Patient is a 30-year-old male with a past medical history of EtOH abuse and nicotine dependence who is currently admitted to inpatient psychiatric mental health unit secondary to reports of suicidal and homicidal ideations and we are on consult for continued medical management. Physical exam: Patient seen and evaluated this morning. He reports he is doing well and denies having any signs/symptoms of alcohol withdrawal. His vital signs were reviewed and stable. He denies having any headache, lightheadedness, dizziness, changes in vision or hearing, chest pain or palpitations, shortness of breath, abdominal pain, nausea, vomiting, or diarrhea. General: non toxic, no distress, appears at stated age Derm: warm, dry Head: atraumatic, normocephalic, symmetric Eyes: EOMI, no lid lag, anicteric sclera Mouth: no lip lesion, mucus membranes moist Cardiovascular: S1S2 normal with regular rate and rhythm. No murmur, gallop, or rub. Positive posterior tibial pulses bilaterally, cap refill < 2 seconds Lungs: Respirations even, regular, and unlabored on room air. CTA bilaterally, no rhonchi, no rales , no accessory muscle use. Abdominal: soft, nontender to palpation, no guarding, no appreciable organomegaly Ext: no gross muscle atrophy, no edema, no contractures Neuro: CN II-XI grossly intact, no focal neuro deficits Psych: Alert, oriented, appropriate affect Plan of care: EtOH abuse -Continue to provide encouragement and alcohol cessation. Patient encouraged to go to inpatient drug and alcohol rehabilitation facility such as [facility] upon discharge from mental health unit. -Continue Librium 10 mg 4 times daily -Continue thiamine, folic acid, and multivitamin daily. Nicotine dependence -Continue nicotine patch 21 mg every 24 hours -Continue to provide encouragement and education on the benefits of smoking cessation and the risks of continued use. Depression with reports of suicidal and homicidal ideations -Management per primary admitting psychiatry team Thank you for allowing us to participate in the care of this pleasant patient. Do not hesitate to contact us with questions. We will follow along on an as- needed basis, RN to notify provider with needs. Someone can be reached from the [facility] hospitalist group all hours of the day at [phone] or via perfect serve. Objective - Vital Signs Vital signs: Vital Signs Temp 97.3 F L 04/13/21 04:18 Pulse 84 02/19/21 04:18 Resp 16 02/19/21 04:18 BP 124/79 02/19/21 04:18 Pulse Ox 95 02/19/21 04:18 - Labs CBC & Chem 7: 02/15/21 06:39 02/15/21 06:39
== END 2021-02-19 16:35 | disposition home or self-care (01) | DRG 885 ==
LOC: EC 14:36 → 3MHU 20:29
PROVIDERS: ADMIT Psychiatry & Neurology Psychiatry; ATTEND Psychiatry & Neurology Psychiatry
DX: F39 Unspecified mood [affective] disorder (principal); F10.939 Alcohol use, unspecified with withdrawal, unspecified; Z20.822 Contact with and (suspected) exposure to COVID-19; F41.9 Anxiety disorder, unspecified; G47.00 Insomnia, unspecified; F17.210 Nicotine dependence, cigarettes, uncomplicated; Z71.6 Tobacco abuse counseling; Z87.828 Personal history of other (healed) physical injury and trauma; Z98.890 Other specified postprocedural states; Z56.0 Unemployment, unspecified; Z81.8 Family history of other mental and behavioral disorders
CPT/HCPCS: 80053; 80306; 81003; 82075; 83735; 84443; 85025; 87635; 99285

== ENCOUNTER 2023-02-04 15:40 | Inpatient (IN) | payer OTHER ==
--- NOTE | 2023-02-04 16:28 | ED ---
General Adult HPI - General Chief complaint: Psychiatric Symptoms Stated complaint: Mental Health Time Seen by Provider: 02/04/23 15:55 Source: patient, family, RN notes reviewed, old records reviewed Mode of arrival: ambulatory Limitations: no limitations - History of Present Illness Initial comments: This a 32-year-old male who comes in with his parents because he was stating he wanted to hurt somebody and he also made statements stating he wanted to hurt himself. Patient had a couple of guns and he was asked his mother to find examination form. Patient is highly intoxicated and also smoked marijuana today. Patient states he only wants to hurt people who deserve. Patient also states he has made some remark about wanting to kill himself any at this point not sure if he still does. Patient denies any physical complaints today. - Related Data Home Medications Medication Instructions Recorded Confirmed Disulfiram [Antabuse] 250 mg PO DAILY 02/04/23 02/04/23 FLUoxetine HCL [PROzac] 40 mg PO DAILY 02/04/23 02/04/23 Multivitamins, Thera [Multivitamin 1 tab PO DAILY 02/04/23 02/04/23 (formulary)] Ziprasidone [Geodon] 60 mg PO BID 02/04/23 02/04/23 Previous Rx's Medication Instructions Recorded Folic Acid 1 mg PO DAILY 30 Days tab 09/10/22 Melatonin 10 mg PO HS 30 Days tab 09/10/22 Thiamine [Vitamin B-1] 100 mg PO DAILY 30 Days tab 09/10/22 Allergies Allergy/AdvReac Type Severity Reaction Status Date / Time No Known Allergies Allergy Verified 02/04/23 18:04 Review of Systems ROS Statement: Those systems with pertinent positive or pertinent negative responses have been documented in the HPI. ROS Other: All systems not noted in ROS Statement are negative. Past Medical History Past Medical History: No Reported History Additional Past Medical History / Comment(s): Etoh abuse History of Any Multi-Drug Resistant Organisms: None Reported Past Surgical History: Orthopedic Surgery Additional Past Surgical History / Comment(s): trauma surgery from accident Past Anesthesia/Blood Transfusion Reactions: No Reported Reaction Past Psychological History: Anxiety Smoking Status: Current every day smoker Past Alcohol Use History: Daily, Heavy Past Drug Use History: None Reported - Past Family History family Additional Family Medical History / Comment(s): fathers side- prostate cancer. Maternal grandfather- heart disease General Exam - General Exam Comments Initial Comments: GENERAL: Patient is well-developed and well-nourished. Patient is nontoxic and well- hydrated and is in no acute distress. Patient is very intoxicated ENT: Neck is soft and supple. No significant lymphadenopathy is noted. Oropharynx is clear. Moist mucous membranes. Neck has full range of motion without eliciting any pain. EYES: The sclera were anicteric and conjunctiva were pink and moist. Extraocular movements were intact and pupils were equal round and reactive to light. Eyelids were unremarkable. PULMONARY: Unlabored respirations. Good breath sounds bilaterally. No audible rales rhonchi or wheezing was noted. CARDIOVASCULAR: There is a regular rate and rhythm without any murmurs gallops or rubs. ABDOMEN: Soft and nontender with normal bowel sounds. SKIN: Skin is clear with no lesions or rashes and otherwise unremarkable. NEUROLOGIC: Patient is alert and oriented x3. Cranial nerves II through XII are grossly intact. Motor and sensory are also intact. Normal speech, volume and content. Symmetrical smile. MUSCULOSKELETAL: Normal extremities with adequate strength and full range of motion. LYMPHATICS: No significant lymphadenopathy is noted PSYCHIATRIC: Patient states he does one hurts other people and potentially himself. Limitations: no limitations Course Vital Signs 02/04/23 15:52 Temperature 97.4 F L Pulse Rate 119 H Respiratory 20 Rate Blood Pressure 106/74 O2 Sat by Pulse 99 Oximetry Procedures - Restraint - Face to Face Restraint Occurrence 1 Patient's Immediate Situation: Endangers others' safety, Endangers staff safety Patient's Reaction to the Intervention: Uncooperative, Angry, Belligerent, Aggressive Patient's Medical & Behavioral Condition: Awake, Alert Need to Continue or Terminate Restraint or Seclusion: Continue Face to Face Eval of Restraint Date: 02/04/23 Face to Face Eval of Restraint Time: 17:01 Medical Decision Making - Medical Decision Making Was pt. sent in by a medical professional or institution (, [facility], FUEL QUALITY TECH, urgent care, hospital, or custodial...) When possible be specific @ -No Did you speak to anyone other than the patient for history (EMS, parent, family, police, friend...)? What history was obtained from this source @ -Parents brought the patient in and gave a lot of the history Did you review nursing and triage notes (agree or disagree)? Why? @ -I reviewed and agree with nursing and triage notes Were old charts reviewed (outside hosp., previous admission, EMS record, old EKG, old radiological studies, urgent care reports/EKG's, custodial records)? Report findings @ -No old charts were reviewed Differential Diagnosis (chest pain, altered mental status, abdominal pain women, abdominal pain men, vaginal bleeding, weakness, fever, dyspnea, syncope, headache, dizziness, GI bleed, back pain, seizure, CVA, palpatations, mental health, musculoskeletal)? @ -Differential Mental Health Depression, anxiety, bipolar, psychosis, schizophrenia, borderline personality, situational depression, adjustment disorder, behavioral disorder, brain tumor, malingering, substance abuse, encephalopathy, medication reaction, dementia, hypothyroidism, degenerative neurologic disorder, lupus.... This is not meant to be all-inclusive list EKG interpreted by me (3pts min.). @ -As above X-rays interpreted by me (1pt min.). @ -None done CT interpreted by me (1pt min.). @ -None done U/S interpreted by me (1pt. min.). @ -None done What testing was considered but not performed or refused? (CT, X-rays, U/S, labs)? Why? @ -None What meds were considered but not given or refused? Why? @ -None Did you discuss the management of the patient with other professionals (professionals i.e. , PA, FUEL QUALITY TECH, lab, RT, psych nurse, social media coordinator, principal strategist, teacher, nuclear medicine officer, casework supervisor)? Give summary @ -[facility] [place] Was smoking cessation discussed for >3mins.? @ -No Was critical care preformed (if so, how long)? @ -No Were there social determinants of health that impacted care today? How? (Homelessness, low income, unemployed, alcoholism, drug addiction, transportation, low edu. Level, literacy, decrease access to med. care, half-way, rehab)? @ -No Was there de-escalation of care discussed even if they declined (Discuss DNR or withdrawal of care, Hospice)? DNR status @ -No What co-morbidities impacted this encounter? (DM, HTN, Smoking, COPD, CAD, Cancer, CVA, ARF, Chemo, Hep., AIDS, mental health diagnosis, sleep apnea, morbid obesity)? @ -None Was patient admitted / discharged? Hospital course, mention meds given and route, prescriptions, significant lab abnormalities, going to OR and other pertinent info. @ -Patient came in was very belligerent and became aggressive and eventually need to be sedated. Patient did state he wanted to kill some people but only people that were bad and he also insisted that he did considering hurting himself. He states his parents are very reluctant to talk about having guns. Patient was intoxicated so I spoke with the [facility] hospitalist and they agreed to admit the patient I admitted the patient I put him on a withdra wal while protocol Undiagnosed new problem with uncertain prognosis? @ -No Drug Therapy requiring intensive monitoring for toxicity (Heparin, Nitro, Insulin, Cardizem)? @ -No Were any procedures done? @ -No Diagnosis/symptom? @ -Alcohol intoxication Acute, or Chronic, or Acute on Chronic? @ -Acute Uncomplicated (without systemic symptoms) or Complicated (systemic symptoms)? @ -Complicated Side effects of treatment? @ -No Exacerbation, Progression, or Severe Exacerbation? @ -No Poses a threat to life or bodily function? How? (Chest pain, [place], [place], pneumonia, PE, COPD, DKA, ARF, appy, cholecystitis, CVA, Diverticulitis, Homicidal, Suicidal, threat to staff... and all critical care pts) @ -No Diagnosis/symptom? @ -Suicidal Acute, or Chronic, or Acute on Chronic? @ -Acute Uncomplicated (without systemic symptoms) or Complicated (systemic symptoms)? @ -Complicated Side effects of treatment? @ -No Exacerbation, Progression, or Severe Exacerbation] @ -no Poses a threat to life or bodily function? @ -Yes patient could potentially kill himself Diagnosis/symptom? @ -Homicidal Acute, or Chronic, or Acute on Chronic? @ -Acute Uncomplicated (without systemic symptoms) or Complicated (systemic symptoms)? @ -Complicated Side effects of treatment? @ -none Exacerbation, Progression, or Severe Exacerbation] @ -no Poses a threat to life or bodily function? @ -no - Lab Data Result diagrams: 02/04/23 17:53 02/04/23 17:53 Lab Results 02/04/23 02/04/23 Range/Units 17:53 17:53 WBC 7.8 (3.8-10.6) k/uL RBC 4.95 (4.30-5.90) m/uL Hgb 16.0 (13.0-17.5) gm/dL Hct 47.8 (39.0-53.0) % MCV 96.5 (80.0-100.0) fL MCH 32.2 (25.0-35.0) pg MCHC 33.4 (31.0-37.0) g/dL RDW 13.6 (11.5-15.5) % Plt Count 255 (150-450) k/uL MPV 7.1 Neutrophils % 60 % Lymphocytes % 31 % Monocytes % 3 % Eosinophils % 4 % Basophils % 1 % Neutrophils # 4.7 (1.3-7.7) k/uL Lymphocytes # 2.5 (1.0-4.8) k/uL Monocytes # 0.2 (0-1.0) k/uL Eosinophils # 0.3 (0-0.7) k/uL Basophils # 0.1 (0-0.2) k/uL Sodium 148 H (137-145) mmol/L Potassium 4.0 (3.5-5.1) mmol/L Chloride 114 H (98-107) mmol/L Carbon Dioxide 19 L (22-30) mmol/L Anion Gap 15 mmol/L BUN 10 (9-20) mg/dL Creatinine 0.92 (0.66-1.25) mg/dL Est GFR (CKD-EPI)AfAm >90 (>60 ml/min/1.73 sqM) Est GFR (CKD-EPI)NonAf >90 (>60 ml/min/1.73 sqM) Glucose 102 H (74-99) mg/dL Calcium 9.0 (8.4-10.2) mg/dL Total Bilirubin 0.2 (0.2-1.3) mg/dL AST 24 (17-59) U/L ALT 14 (4-49) U/L Alkaline Phosphatase 93 (38-126) U/L Total Protein 7.3 (6.3-8.2) g/dL Albumin 4.7 (3.5-5.0) g/dL Serum Alcohol 300 H* mg/dL Disposition Clinical Impression: Suicidal thoughts, Homicidal thoughts, Alcohol intoxication Disposition: ADMITTED IP TO THIS HOSP Referrals: None,Stated [Primary Care Provider] - 1-2 days Time of Disposition: 19:28
[2023-02-04] MEDS ORDERED: LORazepam 2 MG/ML INJ IM STA (17:02)
[2023-02-04] MEDS ORDERED: ZIPRASIDONE 20 MG VIAL IM STA (17:02)
[2023-02-04 18:46] LABS: ALT 14 U/L (4-49); AST 24 U/L (17-59); African American GFR (CKD) >90 (>60 ml/min/1.73 sqM); Albumin 4.7 g/dL (3.5-5.0); Alkaline Phosphatase 93 U/L (38-126); Anion Gap 15 mmol/L; Blood Urea Nitrogen 10 mg/dL (9-20); Carbon Dioxide 19 mmol/L (22-30); Chloride 114 mmol/L (98-107); Glucose 102 mg/dL (74-99); Non-African American GFR(CKD) >90 (>60 ml/min/1.73 sqM); Sodium 148 mmol/L (137-145); Total Bilirubin 0.2 mg/dL (0.2-1.3); Total Protein 7.3 g/dL (6.3-8.2)
[2023-02-04 18:52] LABS: Basophils # (A) 0.1 k/uL (0-0.2); Basophils % (A) 1 %; Eosinophils # (A) 0.3 k/uL (0-0.7); Eosinophils % (A) 4 %; HCT 47.8 % (39.0-53.0); Lymphocytes # (A) 2.5 k/uL (1.0-4.8); Lymphocytes % (A) 31 %; MCH 32.2 pg (25.0-35.0); MCHC 33.4 g/dL (31.0-37.0); MCV 96.5 fL (80.0-100.0); Mean Platelet Volume 7.1; Monocytes # (A) 0.2 k/uL (0-1.0); Monocytes % (A) 3 %; Neutrophils # (A) 4.7 k/uL (1.3-7.7); Neutrophils % (A) 60 %; Platelet Count 255 k/uL (150-450); RBC 4.95 m/uL (4.30-5.90); RDW 13.6 % (11.5-15.5); WBC 7.8 k/uL (3.8-10.6)
[2023-02-04 19:18] LABS: Alcohol 300 mg/dL
[2023-02-04] MEDS ORDERED: LORazepam 2 MG/ML INJ IV PRN (19:28)
[2023-02-04] MEDS ORDERED: THIAMINE 100 MG/ML 2 ML VIAL IM STA (19:28)
[2023-02-04] MEDS ORDERED: SODIUM CHLORIDE 0.9% 1,000 ML IV ONE (19:29)
[2023-02-05] MEDS ORDERED: THIAMINE 100 MG TAB PO SCH (09:00)
[2023-02-05] MEDS ORDERED: NICOTINE 21MG/24HR PATCH TRANSDERM SCH (10:00)
--- NOTE | 2023-02-05 13:18 | P.HPIM ---
History of Present Illness This is a pleasant 32 years old male with no significant past medical history He presents because of soreness to hurt himself as he currently, he denies any attempts. He denies any specific symptoms like no headache weakness numbness or dizziness, no chest pain dyspnea or coughing. No change in his urine or bowel habits. No fever. He states that he drinks alcohol, he drinks 8% scans the 24 hours 4, also he smokes half pack to one pack per day, no illicit drugs. He says that he wants to be treated for his psych illness. His CIWA score today is 1 this morning Patient vitals looks stable Labs are unremarkable CBC, sodium slightly elevated 148 rest of basic metabolic panel is unremarkable , liver enz not elevated high alcohol level on admission about 300 Past Medical History Past Medical History: No Reported History Additional Past Medical History / Comment(s): Etoh abuse History of Any Multi-Drug Resistant Organisms: None Reported Past Surgical History: Orthopedic Surgery Additional Past Surgical History / Comment(s): trauma surgery from accident Past Anesthesia/Blood Transfusion Reactions: No Reported Reaction Past Psychological History: Anxiety Smoking Status: Current every day smoker Past Alcohol Use History: Daily, Heavy Past Drug Use History: None Reported - Past Family History family Additional Family Medical History / Comment(s): fathers side- prostate cancer. Maternal grandfather- heart disease Medications and Allergies Home Medications Medication Instructions Recorded Confirmed Type Folic Acid 1 mg PO DAILY 30 Days tab 09/10/22 02/04/23 Rx Melatonin 10 mg PO HS 30 Days tab 09/10/22 02/04/23 Rx Thiamine [Vitamin B-1] 100 mg PO DAILY 30 Days tab 09/10/22 02/04/23 Rx Disulfiram [Antabuse] 250 mg PO DAILY 02/04/23 02/04/23 History FLUoxetine HCL [PROzac] 40 mg PO DAILY 02/04/23 02/04/23 History Multivitamins, Thera [Multivitamin 1 tab PO DAILY 02/04/23 02/04/23 History (formulary)] Ziprasidone [Geodon] 60 mg PO BID 02/04/23 02/04/23 History Allergies Allergy/AdvReac Type Severity Reaction Status Date / Time No Known Allergies Allergy Verified 02/04/23 18:04 Physical Exam Vitals: Vital Signs Temp Pulse Pulse Resp BP BP Pulse Ox 02/05/23 06:59 80 20 129/74 95 02/04/23 21:45 98.0 F 20 130/80 02/04/23 20:57 78 18 122/78 98 02/04/23 15:52 97.4 F L 119 H 20 106/74 99 Intake and Output 02/04/23 02/05/23 02/05/23 22:59 06:59 14:59 Intake Total 360 Balance 360 Intake: Oral 360 Other: # Voids 1 Weight 79.379 kg Results CBC & Chem 7: 02/04/23 17:53 02/04/23 17:53 Labs: Abnormal Lab Results - Last 24 Hours (Table) 02/04/23 Range/Units 17:53 Sodium 148 H (137-145) mmol/L Chloride 114 H (98-107) mmol/L Carbon Dioxide 19 L (22-30) mmol/L Glucose 102 H (74-99) mg/dL Serum Alcohol 300 H* mg/dL Assessment and Plan Assessment: Alcohol intoxication and alcohol withdrawal depression with Suicidal thoughts mild hypernatremia, secondary to dehydration Nicotine dependence, patient was counseled and he agrees Plan: Continue with CIWA protocol Continue with thiamine Psych consult Suicidal precautions including sitter at bedside, patient cannot leave AMA and if he tries to leave AMA he needs to be petitioned Mild hypernatremia secondary to dehydration, recheck sodium level. Patient currently clinically is asymptomatic. Patient is medically stable to be transferred to psych units once he is evaluated and accepted by psychiatric service Labs and medication were reviewed.. Continue same treatment. Continue with symptomatic treatment. Resume home medication. Monitor labs and vitals. DVT and GI prophylaxis. Further recommendations as per clinical course of the patient DVT prophylaxis: Subcutaneous heparin GI Prophylaxis: Pepcid Prognosis is guarded
[2023-02-05] MEDS ORDERED: ARIPiprazole 10 MG TAB PO STA (13:44)
[2023-02-05] MEDS ORDERED: QUEtiapine 50 MG TAB PO PRN (13:45)
--- NOTE | 2023-02-05 13:56 | P.CN ---
Psychiatric Consult - . Consult date: 02/05/23 Consult:: 02/05/23 13:56 IDENTIFYING DATA: This patient is a 32-year-old male with significant history of alcohol use disorder and cannabis use disorder who presents to our hospital on 02/04/2023 for psychiatric evaluation. HISTORY OF PRESENT ILLNESS: The patient presented to the hospital on 02/04/2023 for psychiatric evaluation. The patient reported that he wants to hurt somebody and also made statements that he wants to hurt himself. The patient reportedly has access to firearms. He was noted to be very intoxicated while in the emergency department with a blood alcohol level in the 300s. The patient was verbalizing threats to kill himself and others. Due to his agitation, the patient required the use of restraints and administration of IM medications in order to calm down. He was subsequently admitted onto the medical floor for management of acute alcohol withdrawal. On evaluation of his provider, the patient reports that he has been feeling increasingly stressed and angry regarding his life situation. The patient reports that he is very upset at the court system as he does not have custody over his child. He reports that he wants to have increased visitation rights but has not been granted this. Furthermore, the patient reports that he has been dealing with the repercussions of drinking and driving. He states that he is upset that he has to blow into a breathalyzer in order to drive. He reports that he is angry towards the placing judge who has ordered this. Currently, the patient is denying any suicidal or homicidal ideation, intention, and/or plan. He does however admit to endorsing homicidal thoughts towards his brother as well as suicidal thoughts yesterday. He is not endorsing any auditory or visual hallucinations. He is denying any paranoia or other delusions. The patient does acknowledge that he has been drinking. He is currently denying any substance abuse otherwise. He does report a history of stimulant abuse. PAST PSYCHIATRIC HISTORY: Patient has a a history of bipolar disorder, alcohol use disorder, nicotine dependence, and cannabis use. He is currently on a home regimen of Geodon and Prozac however admits to nonadherence with his prescribed medications. The patient was last hospitalized on our psychiatric unit in August 2022. The patient denies any current outpatient psychiatric follow-up. Patient denies any history of suicide attempts in the past. PAST MEDICAL HISTORY: . Past Medical History: No Reported History Additional Past Medical History / Comment(s): Etoh abuse History of Any Multi-Drug Resistant Organisms: None Reported Past Surgical History: Orthopedic Surgery Additional Past Surgical History / Comment(s): trauma surgery from accident Past Anesthesia/Blood Transfusion Reactions: No Reported Reaction Past Psychological History: Anxiety Smoking Status: Current every day smoker Past Alcohol Use History: Daily, Heavy Past Drug Use History: None Reported ALLERGIES: NKDA CHEMICAL DEPENDENCY HISTORY: Patient does admit to daily alcohol use. He reports at least a pint of liquor daily. He reports a history of methamphetamine use. He denies any use for the past year. He reports daily tobacco use. He reports marijuana use. FAMILY PSYCHIATRIC/SUBSTANCE USE HISTORY: The patient's father reportedly has bipolar disorder. He also reports a brother and sister struggle with anxiety. SOCIAL HISTORY: Patient was born and raised in [place]. He currently lives in his own house. He reportedly has a child but does not have custody over this child. MENTAL STATUS EXAM: General Appearance: Patient appears to be stated age is alert, pleasant, and cooperative. Patient appears to have slightly disheveled hygiene and grooming wearing hospital gown. Very poor dentition. Wearing sunglasses. Behavior: Seated upright in his bed with elevated psychomotor activity. Speech: Patient's speech is fluent and nonpressured. Hyperverbal and loud in volume but interruptible. Mood/Affect: Patient reports their mood is "stressed out", affect is expansive and irritable. Suicidality/Homicidality: Patient is currently denying any suicidal or homicidal ideation. Perceptions: Patient denies any visual hallucinations and denies any auditory hallucinations Though content/process: There is no evidence of any delusional thought content and thought process is linear and goal-directed. Memory and concentration: AOX3, grossly intact for the purposes of this session. Can spell "WORLD" backwards Judgment and insight: poor IMPRESSIONS: Bipolar 2 disorder, hypomanic episode Alcohol use disorder Tobacco use disorder PLAN: -At this time patient DOES meet criteria for inpatient psychiatric admission. Patient is agreeable to sign himself voluntarily to the psychiatric unit at this time. He does endorse feeling extremely overwhelmed and does admit to making suicidal and homicidal statements. -Delirium precautions recommended with patient including - avoiding use of narcotics and KETTLE ROOM HELPER sedatives, limit anticholinergic medications when possible, frequent re-orientation, minimize use of restraints, open window shades during the day and close them at night -Would recommend the following medication changes/additions: Discontinue Geodon to take medication nonadherence. Start Abilify with plans to transition patient to [facility]. Continue Prozac 40 mg by mouth daily for depression/anxiety Seroquel 50 mg at bedtime when necessary for insomnia/mood -Continue 1:1 sitter for safety -Cannot leave AMA at this time. Patient will need a petition and certification if attempting to leave AMA. -Will continue to follow along -When medically stable, patient is eligible for transfer to a psych bed when available. 02/05/23 13:56
[2023-02-05 14:07] LABS: Potassium 4.3 mmol/L (3.5-5.1)
[2023-02-05 14:22] LABS: Amphetamine Screen,Urine Not Detected (NotDetected); Barbiturate Screen,Urine Not Detected (NotDetected); Benzodiazepines Screen,Urine Detected (NotDetected); Cocaine Screen,Urine Not Detected (NotDetected); Methadone Screen, Urine Not Detected (NotDetected); Opiate Screen,Urine Not Detected (NotDetected); Oxycodone Screen, Urine Not Detected (NotDetected); Phencyclidine Screen,Urine Not Detected (NotDetected); Tricyclic Antidepressant,Urine Not Detected (NotDetected); Urn Cannabinoid Scrn Detected (NotDetected)
[2023-02-05] MEDS ORDERED: chlordiazePOXIDE 25 MG CAP PO SCH (16:00)
[2023-02-05 17:12] VITALS: BP 133/74; PULSE 70; RESP 18; TEMP 98.8
[2023-02-06] MEDS ORDERED: ARIPiprazole 10 MG TAB PO SCH (09:00)
[2023-02-06] MEDS ORDERED: FLUoxetine HCL 20 MG CAP PO SCH (09:00)
== END 2023-02-05 16:49 | DRG 775 ==
LOC: EC 15:40 → 4SSUR 19:29
PROVIDERS: ADMIT Hospitalist; ATTEND Hospitalist
DX: F10.129 Alcohol abuse with intoxication, unspecified (principal); Y90.8 Blood alcohol level of 240 mg/100 ml or more; F10.139 Alcohol abuse with withdrawal, unspecified; E87.0 Hyperosmolality and hypernatremia; E86.0 Dehydration; F17.210 Nicotine dependence, cigarettes, uncomplicated; Z71.6 Tobacco abuse counseling; R45.850 Homicidal ideations; R45.851 Suicidal ideations; Z79.899 Other long term (current) drug therapy; Z78.1 Physical restraint status; F31.81 Bipolar II disorder; Z20.822 Contact with and (suspected) exposure to COVID-19; Z28.311 Partially vaccinated for COVID-19
CPT/HCPCS: 36415; 80051; 80053; 80306; 80320; 85025; 87635; 96360; 96372; 99285

== ENCOUNTER 2023-02-05 16:04 | Inpatient (IN) | payer MEDICAID, OTHER ==
[2023-02-05] MEDS ORDERED: ACETAMINOPHEN TAB 325 MG TAB PO PRN (16:26)
[2023-02-05] MEDS ORDERED: HALOPERIDOL LACTATE 5 MG/ML 1 ML VIAL IM PRN (16:26)
[2023-02-05] MEDS ORDERED: MAG HYDROX/AL HYDROX/SIMETH 30 ML CUP PO PRN (16:26)
[2023-02-05] MEDS ORDERED: MAGNESIUM HYDROXIDE 2,400 MG/10 ML CUP PO PRN (16:26)
[2023-02-05] MEDS ORDERED: haloperidoL 5 MG TAB PO PRN (16:32)
[2023-02-05] MEDS ORDERED: LORazepam 2 MG/ML INJ IM PRN (16:32)
[2023-02-05] MEDS ORDERED: CYCLOBENZAPRINE 10 MG TAB PO PRN (16:32)
[2023-02-05] MEDS ORDERED: QUEtiapine 50 MG TAB PO PRN (16:32)
[2023-02-05] MEDS: chlordiazePOXIDE 25 MG CAP PO SCH (21:06)
[2023-02-06] MEDS: LORazepam 1 MG TAB PO PRN ×2 (03:32→20:18)
[2023-02-06] MEDS: NICOTINE 14MG/24HR PATCH TRANSDERM SCH (08:44)
[2023-02-06] MEDS: THIAMINE 100 MG TAB PO SCH (08:44)
[2023-02-06] MEDS: chlordiazePOXIDE 25 MG CAP PO SCH ×3 (08:44→20:18)
[2023-02-06] MEDS: FOLIC ACID 1 MG TAB PO SCH (08:44)
[2023-02-06] MEDS: MULTIVITAMINS, THERA 1 EACH TAB PO SCH (08:44)
[2023-02-06] MEDS: FLUoxetine HCL 20 MG CAP PO SCH (08:44)
[2023-02-06] MEDS ORDERED: ARIPiprazole 10 MG TAB PO SCH (09:00)
--- NOTE | 2023-02-06 11:01 | P.HP ---
Psychiatric H&P - . H&P Date: 02/06/23 History & Physical: Allergies Allergy/AdvReac Type Severity Reaction Status Date / Time No Known Allergies Allergy Verified 02/04/23 18:04 Vital Signs Temp 97.7 F 02/06/23 02:18 Pulse 89 02/06/23 08:46 Resp 18 02/06/23 02:18 BP 142/81 02/06/23 08:46 Pulse Ox 94 L 02/06/23 02:18 FiO2 Intake & Output 02/05/23 02/06/23 02/06/23 18:59 06:59 18:59 Weight 78.046 kg 02/06/23 11:00 IDENTIFYING DATA: Patient is a 32-year-old male with significant history of alcohol use disorder and cannabis use disorder who presents to our hospital on 02/04/2023 for psychiatric evaluation. HPI: The patient presented to the hospital on 02/04/2023 for psychiatric evaluation. The patient reported that he wants to hurt somebody and also made statements that he wants to hurt himself. The patient reportedly has access to firearms. He was noted to be very intoxicated while in the emergency department with a blood alcohol level in the 300s. In the ED, he was verbalizing threats to kill himself and others. He was very agitated and required restraints. He was subsequently admitted to the medical floor for stabilization and concern for acute alcohol withdrawal. He was evaluated on the medical floor and was agreeable to psychiatric admission. The patient reports he has been feeling increasingly stressed and angry regarding his life situation. The patient reports that he is very upset at the court system as he does not have custody over his child. He reports that he wants to have increased visitation rights but has not been granted this. Furthermore, the patient reports that he has been dealing with the repercussions of drinking and driving. He states that he is upset that he has to blow into a breathalyzer in order to drive. He reports that he is angry towards the dining service inspector who has ordered this however vehemently denies any homicidal ideation towards this dining service inspector. Currently, the patient is denying any suicidal or homicidal ideation, intention, and/or plan. He does however admit to endorsing homicidal thoughts towards his brother prior to admission as well as suicidal thoughts while in the ED. He is not endorsing any auditory or visual hallucinations. He is denying any paranoia or other delusions. The patient does acknowledge that he has been drinking and approximates 1/4 gallon of alcohol per day prior to admission. He is currently denying any substance abuse otherwise. He does report a history of stimulant abuse. PAST PSYCHIATRIC HISTORY: Patient has a a history of bipolar disorder, alcohol use disorder, nicotine dependence, and cannabis use. He is currently on a home regimen of Geodon and Prozac however admits to nonadherence with his prescribed medications. The patient was last hospitalized on our psychiatric unit in August 2022. The patient denies any current outpatient psychiatric follow-up. Patient denies any history of suicide attempts in the past. PMH: Past Medical History: No Reported History Additional Past Medical History / Comment(s): Etoh abuse History of Any Multi-Drug Resistant Organisms: None Reported Past Surgical History: Orthopedic Surgery Additional Past Surgical History / Comment(s): trauma surgery from accident Past Anesthesia/Blood Transfusion Reactions: No Reported Reaction Past Psychological History: Anxiety Smoking Status: Current every day smoker Past Alcohol Use History: Daily, Heavy Past Drug Use History: None Reported ALLERGIES: NKDA CHEMICAL DEPENDENCY HISTORY: Patient does admit to daily alcohol use. He reports at least a pint of liquor daily up to a quarter gallon of vodka. He reports a history of methamphetamine use however denies any recent use. He denies any use for the past year. He reports daily tobacco use (2 PPD). He reports marijuana use. FAMILY PSYCHIATRIC/SUBSTANCE USE HISTORY: The patient's father reportedly has bipolar disorder. He also reports a brother and sister struggle with anxiety. SOCIAL HISTORY: Patient was born and raised in [place]. He currently lives in his own house. He reportedly has a child but does not have custody over this child. MENTAL STATUS EXAM: General Appearance: Patient appears to be stated age is alert, directable, and attempts to cooperate. Patient appears to have fair hygiene and grooming. Very poor dentition. Wearing sunglasses. Red hair and vaz. Behavior: Patient is seated without any agitated behavior. Eye contact is appropriate. Speech: Patient's speech is fluent and nonpressured. Mood/Affect: Patient reports their mood is "feeling a little anxious," affect is congruent and nervous. Suicidality/Homicidality: Patient denies any current suicidal or homicidal ideation. Perceptions: Patient denies any visual hallucinations and denies any auditory hallucinations Though content/process: There is no evidence of any delusional thought content and thought process is linear and goal-directed. Memory and concentration: AOX3, grossly intact for the purposes of this session. Can spell "WORLD" backwards Judgment and insight: Mildly improving. STRENGTHS/WEAKNESSES: Strength is that the patient is resilient and agreeable to treatment. Good insight. Weakness is the patient's polysubstance use history and poor judgement (especially when intoxicated). INTELLECT: average IMPRESSIONS: Bipolar 2 disorder, hypomanic episode Alcohol use disorder Tobacco use disorder PLAN: -Patient is admitted under voluntary status to MHU for stabilization of psychiatric symptoms and safety. Patient signed adult voluntary form and medication consent and is placed in patient's chart. -Medications : Abilify 15 mg for mood stabilization. Titrate to 20 mg on thursday and administer Abilify maintena 400 mg IM on Thursday. Librium for alcohol withdrawal 50 mg three times daily - taper as see fit Prozac 40 mg daily for depression/anxiety trazodone 100 mg at bedtime for insomnia melatonin 10 mg at bedtime for insomnia -Ativan and Haldol PRN for agitation/aggression -Started thiamine, MVM for etoh use -CIWA protocol with Ativan PRN for ETOH withdrawal -Patient was counselled on substance abuse and desired to cut back on use. Currently not interested in inpatient rehab. -Patient was informed of the risks, benefits and side effects of the medication and patient verbally consented to taking the medications. Patient signed med consent form and was placed in chart. -Internal Medicine consult to perform medical evaluation and physical. -NRT - nicotine patch and nicorette gum. -SW on board for discharge planning. Encourage patient to participate in groups to work on coping skills. 02/06/23 11:00
[2023-02-06] MEDS: traZODone HCL 100 MG TAB PO SCH (20:18)
[2023-02-06] MEDS: MELATONIN 5 MG TABLET PO SCH (20:18)
--- NOTE | 2023-02-06 21:21 | P.CONS ---
History of Present Illness - History of Present Illness This is a pleasant 32 years old male with no significant past medical history, he is known to my service as he was discharged from the medical unit yesterday to psych unit, he was admitted for alcohol abuse and withdrawal. After stabilization he was transferred to the medical mental health unit This morning he was seen walking the hallway with no difficulty. He denies any specific symptoms like no headache weakness numbness or dizziness, no chest pain dyspnea or coughing. No change in his urine or bowel habits. No fever. He states that he drinks alcohol, he drinks 8% scans the 24 hours 4 cans every day, also he smokes half pack to one pack per day, no illicit drugs. He says that he wants to be treated for his psych illness. His CIWA score today is normal Patient vitals looks stable On reviewing the labs from recent admission Labs are unremarkable CBC, sodium slightly elevated 148, improved to normal rest of basic metabolic panel is unremarkable , liver enz not elevated high alcohol level on admission about 300 Review of Systems Review of systems CONSTITUTIONAL: No fever, no malaise, no fatigue. HEENT: No recent visual problems or hearing problems. Denied any sore throat. CARDIOVASCULAR: No orthopnea, PND, no palpitations, no syncope. PULMONARY: No shortness of breath, no cough, no hemoptysis. GASTROINTESTINAL: No diarrhea, no nausea, no vomiting, no abdominal pain. Normoactive bowel sounds. NEUROLOGICAL: No headaches, no weakness, no numbness. HEMATOLOGICAL: Denies any bleeding or petechiae. GENITOURINARY: Denies any burning micturition, frequency, or urgency. MUSCULOSKELETAL/RHEUMATOLOGICAL: Denies any joint pain, swelling, or any muscle pain. ENDOCRINE: Denies any polyuria or polydipsia. Past Medical History Past Medical History: No Reported History Additional Past Medical History / Comment(s): Etoh abuse History of Any Multi-Drug Resistant Organisms: None Reported Past Surgical History: Orthopedic Surgery Additional Past Surgical History / Comment(s): trauma surgery from accident Past Anesthesia/Blood Transfusion Reactions: No Reported Reaction Past Psychological History: Anxiety Smoking Status: Current every day smoker Past Alcohol Use History: Daily, Heavy Past Drug Use History: None Reported - Past Family History family Additional Family Medical History / Comment(s): fathers side- prostate cancer. Maternal grandfather- heart disease Medications and Allergies Home Medications Medication Instructions Recorded Confirmed Type Folic Acid 1 mg PO DAILY 30 Days tab 09/10/22 02/05/23 Rx Melatonin 10 mg PO HS 30 Days tab 09/10/22 02/05/23 Rx Thiamine [Vitamin B-1] 100 mg PO DAILY 30 Days tab 09/10/22 02/05/23 Rx Disulfiram [Antabuse] 250 mg PO DAILY 02/04/23 02/05/23 History FLUoxetine HCL [PROzac] 40 mg PO DAILY 02/04/23 02/05/23 History Multivitamins, Thera [Multivitamin 1 tab PO DAILY 02/04/23 02/05/23 History (formulary)] Ziprasidone [Geodon] 60 mg PO BID 02/04/23 02/05/23 History Allergies Allergy/AdvReac Type Severity Reaction Status Date / Time No Known Allergies Allergy Verified 02/04/23 18:04 Physical Exam Vitals: Vital Signs Temp Pulse Resp BP Pulse Ox 02/06/23 08:46 89 142/81 02/06/23 02:18 97.7 F 100 18 162/83 94 L 02/05/23 17:35 98.7 F 73 16 143/85 95 Intake and Output 02/05/23 02/06/23 02/06/23 22:59 06:59 14:59 Other: Weight 78.046 kg GENERAL: The patient is alert and oriented x3, not in any acute distress. Well developed, well nourished. HEENT: Pupils are round and equally reacting to light. EOMI. No scleral icterus. No conjunctival pallor. Normocephalic, atraumatic. No pharyngeal erythema. No thyromegaly. CARDIOVASCULAR: S1 and S2 present. No murmurs, rubs, or gallops. PULMONARY: Chest is clear to auscultation, no wheezing or crackles. ABDOMEN: Soft, nontender, nondistended, normoactive bowel sounds. No palpable organomegaly. MUSCULOSKELETAL: No joint swelling or deformity. EXTREMITIES: No cyanosis, clubbing, or pedal edema. NEUROLOGICAL: Gross neurological examination did not reveal any focal deficits. SKIN: No rashes. no petechiae. Assessment and Plan Assessment: -Alcohol intoxication and alcohol withdrawal, patient was consulted to abstinence from alcohol -depression with Suicidal thoughts , management as per psych primary team -mild hypernatremia, secondary to dehydration , resolved -Nicotine dependence, patient was counseled and he agrees We recommend patient follow up with PCP in one week after discharge and he was instructed with the same Thank you for consulting us
[2023-02-07] MEDS: FLUoxetine HCL 20 MG CAP PO SCH (08:43)
[2023-02-07] MEDS: THIAMINE 100 MG TAB PO SCH (08:43)
[2023-02-07] MEDS: NICOTINE 14MG/24HR PATCH TRANSDERM SCH (08:43)
[2023-02-07] MEDS: FOLIC ACID 1 MG TAB PO SCH (08:43)
[2023-02-07] MEDS: MULTIVITAMINS, THERA 1 EACH TAB PO SCH (08:44)
[2023-02-07] MEDS: chlordiazePOXIDE 25 MG CAP PO SCH ×2 (08:44→20:06)
[2023-02-07] MEDS ORDERED: ARIPiprazole 15 MG TAB PO SCH (09:00)
[2023-02-07] MEDS: NICOTINE GUM (POLACRILEX) 2 MG GUM BUCCAL PRN (15:50)
--- NOTE | 2023-02-07 16:36 | P.PN ---
Progress Note - Text Interval history: Patient was seen [wandering the hallways] and was directable and agreeable to speak with lead technical writer. states that he is doing "good" reports some situational anger. Denies any withdrawals.At this time patient denies any suicidal or homicidal ideations intent or plan. Denies any Auditory or visual hallu cinations. Patient denies any side effects from the medications and has been compliant with meds. Mental status exam: General Appearance: [Patient appears to be stated age is alert, directable, and cooperative.] Behavior: [No agitated behavior. Patient is calm and directable] Speech: Patient's speech is fluent and nonpressured. Mood/Affect: Mood is "good", affect is congruent. Suicidality/Homicidality: Patient denies having any suicidal or homicidal ideation intent or plan. Perceptions: Patient denies any auditory or visual hallucinations. Though content/process: [There is no evidence of any delusional thought content and thought process is linear and goal-directed.] Memory and concentration: AOX3, grossly intact for the purposes of this session Judgment and insight: improving mildly Assessment/Plan: Continue with current diagnosis. Patient continues to meet criteria for inpatient psychiatric admission for symptom stabilization and safety.[ Will decrease Librium to 50 mg bid and continue all other medications] Monitor for medication compliance and for any psychotropic medication side effects. Will continue to monitor ongoing response to treatment. Encouraged participation in milieu.
[2023-02-07] MEDS: traZODone HCL 100 MG TAB PO SCH (20:06)
[2023-02-07] MEDS: MELATONIN 5 MG TABLET PO SCH (20:06)
[2023-02-07] MEDS: LORazepam 1 MG TAB PO PRN (20:07)
[2023-02-08 06:53] VITALS: TEMP 97.8
[2023-02-08] MEDS: NICOTINE GUM (POLACRILEX) 2 MG GUM BUCCAL PRN (06:54)
[2023-02-08] MEDS: NICOTINE 14MG/24HR PATCH TRANSDERM SCH (09:06)
[2023-02-08] MEDS: FLUoxetine HCL 20 MG CAP PO SCH (09:06)
[2023-02-08] MEDS: FOLIC ACID 1 MG TAB PO SCH (09:07)
[2023-02-08] MEDS: MULTIVITAMINS, THERA 1 EACH TAB PO SCH (09:07)
[2023-02-08] MEDS: THIAMINE 100 MG TAB PO SCH (09:07)
[2023-02-08] MEDS: chlordiazePOXIDE 25 MG CAP PO SCH (09:08)
[2023-02-08] MEDS: MELATONIN 5 MG TABLET PO SCH (20:15)
[2023-02-08] MEDS: traZODone HCL 100 MG TAB PO SCH (20:15)
[2023-02-08] MEDS: LORazepam 1 MG TAB PO PRN (20:38)
[2023-02-09] MEDS: THIAMINE 100 MG TAB PO SCH (08:50)
[2023-02-09] MEDS: NICOTINE 14MG/24HR PATCH TRANSDERM SCH (08:50)
[2023-02-09] MEDS: MULTIVITAMINS, THERA 1 EACH TAB PO SCH (08:50)
[2023-02-09] MEDS: FLUoxetine HCL 20 MG CAP PO SCH (08:51)
[2023-02-09] MEDS: FOLIC ACID 1 MG TAB PO SCH (08:51)
[2023-02-09] MEDS ORDERED: chlordiazePOXIDE 25 MG CAP PO SCH (09:00)
[2023-02-09 09:42] VITALS: BP 133/81; PULSE 91; RESP 16
--- NOTE | 2023-02-09 11:30 | P.DS ---
Providers Date of admission: 02/05/23 16:48 Expected date of discharge: 02/09/23 Attending physician: Agus Napoles MD Consults: 02/05/23 17:04 Consult Physician Routine Consulting Provider: Leonarda Moses Consult Reason/Comments: H and P Do you want consulting provider notified?: Yes Primary care physician: Stated None - Discharge Diagnosis(es) (1) Bipolar II disorder, most recent episode hypomanic Current Visit: Yes Status: Acute Priority: High (2) Alcohol use disorder Current Visit: Yes Status: Acute Priority: High (3) Tobacco use disorder Current Visit: Yes Status: Chronic Priority: Medium Hospital Course: Admission HPI: Patient is a 32-year-old male with significant history of alcohol use disorder and cannabis use disorder who presents to our hospital on 02/04/2023 for psychiatric evaluation. The patient presented to the hospital on 02/04/2023 for psychiatric evaluation. The patient reported that he wants to hurt somebody and also made statements that he wants to hurt himself. The patient reportedly has access to firearms. He was noted to be very intoxicated while in the emergency department with a blood alcohol level in the 300s. In the ED, he was verbalizing threats to kill himself and others. He was very agitated and required restraints. He was subsequently admitted to the medical floor for stabilization and concern for acute alcohol withdrawal. He was evaluated on the medical floor and was agreeable to psychiatric admission. The patient reports he has been feeling increasingly stressed and angry regarding his life situation. The patient reports that he is very upset at the court system as he does not have custody over his child. He reports that he wants to have increased visitation rights but has not been granted this. Furthermore, the patient reports that he has been dealing with the repercussions of drinking and driving. He states that he is upset that he has to blow into a breathalyzer in order to drive. He reports that he is angry towards the vehicle dismantler who has ordered this however vehemently denies any homicidal ideation towards this vehicle dismantler. Currently, the patient is denying any suicidal or homicidal ideation, intention, and/or plan. He does however admit to endorsing homicidal thoughts towards his brother prior to admission as well as suicidal thoughts while in the ED. He is not endorsing any auditory or visual hallucinations. He is denying any paranoia or other delusions. The patient does acknowledge that he has been drinking and approximates 1/4 gallon of alcohol per day prior to admission. He is currently denying any substance abuse otherwise. He does report a history of stimulant abuse. Patient has a a history of bipolar disorder, alcohol use disorder, nicotine dependence, and cannabis use. He is currently on a home regimen of Geodon and Prozac however admits to nonadherence with his prescribed medications. The patient was last hospitalized on our psychiatric unit in August 2022. The patient denies any current outpatient psychiatric follow-up. Patient denies any history of suicide attempts in the past. Hospital course: Upon admission to the unit patient was initially calm and cooperative. Patient was directable and agreeable to commence treatment. Patient got along well with other patients on the unit and followed unit protocol. Patient was compliant with the medications and denied any side effects throughout hospital course. Patient was started on Abilify for mood stabilization, Prozac for depression/anxiety, trazodone and melatonin for insomnia, and Librium for alcohol withdrawal. Patient spoke of his stressors and engaged in therapy both group and individual. Patient was also seen by medical team for history and physical exam. Throughout the course of the hospitalization patient gradually improved with regards to irritability, mood, sleep, and became future oriented with improved insight and judgment. On the day of discharge patient denied any suicidal or homicidal ideations intent or plan denied any auditory or visual hallucinations. Patient endorsed wanting to live for his health and family. The patient denied any access to guns or weapons. He reports that his firearms are locked up with his family holding the paul. Patient denied any paranoia and did not endorse any delusions. Patient does have a significant history of substance abuse however was counseled on abstaining from all substances including alcohol, marijuana, tobacco, and all illicit drugs (meth, cocaine, heroin, opiates). Patient was offered however declined inpatient substance-abuse rehab. We discussed at length that substance-abuse exacerbates his mental illness and can lead to serious consequences including legal problems as well as harm to himself or others. Patient was also counseled on the medications and need for regular compliance and was encouraged to follow-up with their outpatient appointment for mental health and also for primary care. Prior to discharge a family meeting will be arranged by secondary social studies teacher to answer any questions and ensure safety upon discharge. Mental status exam: General Appearance: Patient appears to be stated age is alert, pleasant, and cooperative. Patient is in no acute distress and has fair hygiene and grooming Behavior: Patient is calmly seated without any agitated behavior. Speech: Patient's speech is fluent and nonpressured. Mood/Affect: Patient reports their mood is "much better", affect is congruent and euthymic to bright. Suicidality/Homicidality: Patient denies having any suicidal or homicidal ideation intent or plan. Perceptions: Patient denies any auditory or visual hallucinations. Though content/process: There is no evidence of any delusional thought content and thought process is linear and goal-directed. Patient is future oriented. Memory and concentration: AOX3, grossly intact for the purposes of this session. Can spell "WORLD" backwards correctly. Judgment and insight: Improved with guarded prognosis Impression: Bipolar 2 disorder, hypomanic episode Alcohol use disorder Tobacco use disorder Plan: -Continue with discharge today as patient has improved and stabilized psychiatrically and is not currently an imminent threat to himself and/or others. Patient will remain at chronically elevated risk for harm to self and/or others due to his impulsivity and alcohol abuse. -Continue medications: Abilify 20 mg by mouth daily for mood stabilization - discussed with the patient option to transition to Abilify maintena. He does not wish to at this time. Prozac 40 mg by mouth daily for depression/anxiety Trazodone 100 mg by mouth at bedtime for insomnia Melatonin 10 mg daily at bedtime for insomnia -Patient was counseled on the need for medication compliance and appropriate follow-up at mental health and also primary care for medical issues. Patient verbalized understanding and agreed. -Social work to arrange for and conduct family meeting to ensure safety upon discharge and answer any questions/concerns. Social work also to arrange for patients follow up appointments with [facility] for psychiatric care along with follow up with primary care provider. -Patient counseled on abstaining from recreational drugs and marijuana and alcohol. Was informed/educated on the adverse effects on their physical and mental health. Patient verbally agreed and understood. Patient was offered substance abuse treatment however declined at this time. -Patient was instructed to return to the hospital or seek immediate medical care if their psychiatric or medical symptoms do worsen or reoccur. -Psychoeducation and supportive therapy provided to patient. Risks and benefits of pharmacological treatment versus the risks and benefits of nontreatment weight and discussed. Informed consent discussion held. Common side effects of psychotropics discussed such as, but not limited to headache, GI disturbance, sexual dysfunction, movement disorders, sedation, and orthostatic hypotension. Life threatening and blackbox warnings of prescribed medications also discussed. Potential risks of operating a vehicle or heavy machinery discussed with patient at length. Advised on importance of compliance and a reliable and responsible manner. Patient advised to review FDA consumer labeling of all medications prior to taking. Patient verbalized understanding of potential risks, and agrees with current treatment plan. Patient advised to medically contact physician/emergency personnel if any acute changes in condition occur. SEE HIS INPATIENT HOSPITAL ADMISSION FOR FULL MEDICAL LABS Vital Signs Temp 97.8 F 02/08/23 06:52 Pulse 91 02/09/23 08:50 Resp 16 02/09/23 08:50 BP 133/81 02/09/23 08:50 Pulse Ox 98 02/08/23 06:52 FiO2 Intake & Output 02/08/23 02/09/23 02/09/23 18:59 06:59 18:59 Weight 79.2 kg Allergies Allergy/AdvReac Type Severity Reaction Status Date / Time No Known Allergies Allergy Verified 02/04/23 18:04 Patient Condition at Discharge: Stable Plan - Discharge Summary Discharge Rx Participant: No New Discharge Prescriptions: New Melatonin 10 mg PO HS 30 Days #60 tab Nicotine Gum (Polacrilex) [Nicorette] 2 mg BUCCAL Q4HR PRN 10 Days #60 pieceofgum PRN Reason: Nicotine Cravings ARIPiprazole [Abilify] 20 mg PO DAILY 30 Days #30 tab traZODone HCL [Desyrel] 100 mg PO HS 30 Days #30 tab Continue Folic Acid 1 mg PO DAILY 30 Days tab Thiamine [Vitamin B-1] 100 mg PO DAILY 30 Days tab FLUoxetine HCL [PROzac] 40 mg PO DAILY 30 Days #30 cap Multivitamins, Thera [Multivitamin (formulary)] 1 tab PO DAILY Discontinued Ziprasidone [Geodon] 60 mg PO BID Melatonin 10 mg PO HS 30 Days tab Disulfiram [Antabuse] 250 mg PO DAILY Discharge Medication List Folic Acid 1 mg PO DAILY 30 Days tab 09/10/22 [Rx] Thiamine [Vitamin B-1] 100 mg PO DAILY 30 Days tab 09/10/22 [Rx] Multivitamins, Thera [Multivitamin (formulary)] 1 tab PO DAILY 02/04/23 [History] ARIPiprazole [Abilify] 20 mg PO DAILY 30 Days #30 tab 02/09/23 [Rx] FLUoxetine HCL [PROzac] 40 mg PO DAILY 30 Days #30 cap 02/09/23 [Rx] Melatonin 10 mg PO HS 30 Days #60 tab 02/09/23 [Rx] Nicotine Gum (Polacrilex) [Nicorette] 2 mg BUCCAL Q4HR PRN 10 Days #60 pieceofgum 02/09/23 [Rx] traZODone HCL [Desyrel] 100 mg PO HS 30 Days #30 tab 02/09/23 [Rx] Follow up Appointment(s)/Referral(s): [facility] [Outside] - 02/10/23 5:00 pm (02-10-23 5:00pm with Allison 02-20-23 9:[address] Ponce ) Activity/Diet/Wound Care/Special Instructions: Avoid the use of street drugs and alcohol. Take all medications as prescribed. When you are in need of refills on your medications, please contact your medical provider and/or outpatient psychiatrist to have this done. Please go to scheduled outpatient appointments for aftercare treatment. If symptoms return or become worse, call the crisis line at and/or go to the nearest emergency room for evaluation. Discharge Disposition: HOME SELF-CARE
--- NOTE | 2023-02-09 15:15 | P.PN ---
Progress Note - Text Progress Note Date: 02/08/23 Interval history: Patient was seen [wandering the hallways] and was directable and agreeable to speak with underwriter. states that he is doing "good". Denies any withdrawals, anger.At this time patient denies any suicidal or homicidal ideations intent or plan. Denies any Auditory or visual hallucinations. Patient denies any side effects from the medications and has been compliant with meds. Mental status exam: General Appearance: [Patient appears to be stated age is alert, directable, and cooperative.] Behavior: [No agitated behavior. Patient is calm and directable] Speech: Patient's speech is fluent and nonpressured. Mood/Affect: Mood is "good", affect is congruent. Suicidality/Homicidality: Patient denies having any suicidal or homicidal ideation intent or plan. Perceptions: Patient denies any auditory or visual hallucinations. Though content/process: [There is no evidence of any delusional thought content and thought process is linear and goal-directed.] Memory and concentration: AOX3, grossly intact for the purposes of this session Judgment and insight: improving mildly Assessment/Plan: Continue with current diagnosis. Patient continues to meet criteria for inpatient psychiatric admission for symptom stabilization and safety.[ Will decrease Librium to 50 mg daily and continue all other medications] Monitor for medication compliance and for any psychotropic medication side effects. Will continue to monitor ongoing response to treatment. Encouraged participation in milieu.
== END 2023-02-09 13:36 | disposition home or self-care (01) | DRG 753 ==
LOC: 3MHU 16:48
PROVIDERS: ADMIT Psychiatry & Neurology Psychiatry; ATTEND Psychiatry & Neurology Psychiatry
DX: F31.81 Bipolar II disorder (principal); E86.0 Dehydration; E87.0 Hyperosmolality and hypernatremia; F10.229 Alcohol dependence with intoxication, unspecified; F10.239 Alcohol dependence with withdrawal, unspecified; F17.210 Nicotine dependence, cigarettes, uncomplicated; F41.9 Anxiety disorder, unspecified; G47.00 Insomnia, unspecified; R45.850 Homicidal ideations; R45.851 Suicidal ideations; Z78.1 Physical restraint status; Z79.899 Other long term (current) drug therapy

== ENCOUNTER 2023-08-14 13:27 | Inpatient (IN) | payer MEDICAID, OTHER ==
--- NOTE | 2023-08-14 16:06 | ED ---
Psych HPI - General Chief Complaint: Psychiatric Symptoms Stated Complaint: Alcohol, Mental Health Time Seen by Provider: 08/14/23 13:57 Source: patient, RN notes reviewed Mode of arrival: ambulatory Limitations: no limitations - History of Present Illness Initial Comments: This is a 33-year-old male who presents to the emergency department for suicidal ideations. Patient reports increasing depression and suicidal ideations over the last couple of weeks. He is on Prozac 40 mg and Abilify 20 mg. States that he has been communicating his concerns about worsening symptoms with his prescribing provider, however they have not made any medication adjustments. Denies any suicidal plans. Also denies any homicidal ideations. Patient does also report alcohol use and states that he last had a couple of beers in the parking lot outside of the emergency department. Patient believes that he would benefit from admission for medication adjustments. Denies any fevers, chills, sore throat, cough, dyspnea, chest pain, palpitations, abdominal pain, nausea, vomiting, diarrhea, back pain, or headaches. MD Complaint: suicidal ideation, feels depressed - Related Data Home Medications Medication Instructions Recorded Confirmed Disulfiram [Antabuse] 250 mg PO DAILY 08/14/23 08/14/23 traZODone HCL [Desyrel] 100 mg PO HS PRN 08/14/23 08/14/23 Previous Rx's Medication Instructions Recorded ARIPiprazole [Abilify] 20 mg PO DAILY 30 Days #30 tab 02/09/23 FLUoxetine HCL [PROzac] 40 mg PO DAILY 30 Days #30 cap 02/09/23 Allergies Allergy/AdvReac Type Severity Reaction Status Date / Time No Known Allergies Allergy Verified 08/14/23 23:19 Review of Systems ROS Statement: Those systems with pertinent positive or pertinent negative responses have been documented in the HPI. ROS Other: All systems not noted in ROS Statement are negative. Past Medical History Past Medical History: No Reported History Additional Past Medical History / Comment(s): Etoh abuse History of Any Multi-Drug Resistant Organisms: None Reported Past Surgical History: Orthopedic Surgery Additional Past Surgical History / Comment(s): trauma surgery from accident Past Anesthesia/Blood Transfusion Reactions: No Reported Reaction Past Psychological History: Anxiety, Depression Smoking Status: Current every day smoker Past Alcohol Use History: Daily, Heavy Past Drug Use History: Marijuana - Past Family History family Additional Family Medical History / Comment(s): fathers side- prostate cancer. Maternal grandfather- heart disease General Exam Limitations: no limitations General appearance: alert, in no apparent distress Head exam: Present: atraumatic, normocephalic, normal inspection Respiratory exam: Present: normal lung sounds bilaterally. Absent: respiratory distress, wheezes, rales, rhonchi, stridor Cardiovascular Exam: Present: regular rate, normal rhythm, normal heart sounds. Absent: systolic murmur, diastolic murmur, rubs, gallop, clicks Neurological exam: Present: alert, oriented X3, CN II-XII intact Psychiatric exam: Present: depressed, flat affect, suicidal ideation. Absent: homicidal ideation Skin exam: Present: warm, dry, intact, normal color. Absent: rash Course Vital Signs 08/14/23 13:32 Temperature 98.3 F Pulse Rate 61 Respiratory 18 Rate Blood Pressure 129/80 O2 Sat by Pulse 99 Oximetry Medical Decision Making - Medical Decision Making This is a 33-year-old male who presents to the emergency department for suicidal ideations. Was pt. sent in by a medical professional or institution? @ -No Did you speak to anyone other than the patient for history? @ -No Did you review nursing and triage notes? @ -Yes, and I agree, it is accurate with regards to the patient's symptoms. Were old charts reviewed? @ -No Differential Diagnosis? @ -Differential Mental Health Depression, anxiety, bipolar, psychosis, schizophrenia, borderline personality, situational depression, adjustment disorder, behavioral disorder, brain tumor, malingering, substance abuse, encephalopathy, medication reaction, dementia, hypothyroidism, degenerative neurologic disorder, lupus.... This is not meant to be all-inclusive list EKG interpreted by me (3pts min.)? @ -Not obtained X-rays interpreted by me (1pt min.)? @ -Not obtained CT interpreted by me (1pt min.)? @ -Not obtained U/S interpreted by me (1pt. min.)? @ -Not obtained What testing was considered but not performed? (CT, X-rays, U/S, labs)? Why? @ -None What meds were considered but not given? Why? @ -None Did you discuss the management of the patient with other professionals? @ -Yes, Beba with [facility], who advised that the patient would be admitted and will sign himself in voluntarily. Did you reconcile home meds? @ -No Was smoking cessation discussed for >3mins.? @ -No Was critical care preformed (if so, how long)? @ -No Were there social determinants of health that impacted care today? How? (Homelessness, low income, unemployed, alcoholism, drug addiction, transportation, low edu. Level, literacy, decrease access to med. care, penitentiary, rehab)? @ -No Was there de-escalation of care discussed even if they declined? (Discuss DNR or withdrawal of care, Hospice)? @ -No What co-morbidities impacted this encounter? (DM, HTN, Smoking, COPD, CAD, Cancer, CVA, Hep., AIDS, mental health diagnosis, sleep apnea, morbid obesity)? @ -Depression Was patient admitted / discharged? @ -Admitted. Patient's BAT on arrival was 0.153, indicating that he would be sober in 4 hours, at 1800. He was evaluated by [facility] at that time, and found to meet admission criteria due to increasing depression with suicidal ideations. Patient was in agreement with this plan and signed himself in voluntarily for psychiatric care. Undiagnosed new problem with uncertain prognosis? @ -None Drug Therapy requiring intensive monitoring for toxicity (Heparin, Nitro, Insulin, Cardizem)? @ -None Were any procedures done? @ -None Diagnosis/symptom? @ -Suicidal ideations Acute, or Chronic, or Acute on Chronic? @ -Acute Uncomplicated (without systemic symptoms) or Complicated (systemic symptoms)? @ -Complicated Side effects of treatment? @ -None Exacerbation, Progression, or Severe Exacerbation] @ -Not applicable Poses a threat to life or bodily function? @ -Yes This case was discussed in detail with the attending ED physician, Dr. Camara. Presentation, findings, and treatment plan discussed in detail as well. - Lab Data Result diagrams: 08/14/23 19:40 08/14/23 19:40 Lab Results 08/14/23 08/14/23 08/14/23 Range/Units 19:40 19:40 19:40 WBC 7.1 (3.8-10.6) k/uL RBC 5.04 (4.30-5.90) m/uL Hgb 15.4 (13.0-17.5) gm/dL Hct 45.7 (39.0-53.0) % MCV 90.8 (80.0-100.0) fL MCH 30.5 (25.0-35.0) pg MCHC 33.6 (31.0-37.0) g/dL RDW 13.3 (11.5-15.5) % Plt Count 254 (150-450) k/uL MPV 7.4 Sodium 143 (137-145) mmol/L Potassium 4.0 (3.5-5.1) mmol/L Chloride 108 H (98-107) mmol/L Carbon Dioxide 23 (22-30) mmol/L Anion Gap 12 mmol/L BUN 9 (9-20) mg/dL Creatinine 0.91 (0.66-1.25) mg/dL Est GFR (CKD-EPI)AfAm >90 (>60 ml/min/1.73 sqM) Est GFR (CKD-EPI)NonAf >90 (>60 ml/min/1.73 sqM) Glucose 95 (74-99) mg/dL Calcium 9.3 (8.4-10.2) mg/dL Total Bilirubin 0.3 (0.2-1.3) mg/dL AST 24 (17-59) U/L ALT 15 (4-49) U/L Alkaline Phosphatase 77 (38-126) U/L Total Protein 7.1 (6.3-8.2) g/dL Albumin 4.4 (3.5-5.0) g/dL Coronavirus (PCR) Not Detected (Not Detectd) Disposition Clinical Impression: Suicidal ideations, Depression Disposition: ADMITTED IP TO THIS HOSP
[2023-08-14 19:49] LABS: HCT 45.7 % (39.0-53.0); HGB 15.4 gm/dL (13.0-17.5); MCH 30.5 pg (25.0-35.0); MCHC 33.6 g/dL (31.0-37.0); MCV 90.8 fL (80.0-100.0); Mean Platelet Volume 7.4; Platelet Count 254 k/uL (150-450); RBC 5.04 m/uL (4.30-5.90); RDW 13.3 % (11.5-15.5); WBC 7.1 k/uL (3.8-10.6)
[2023-08-14 20:12] LABS: ALT 15 U/L (4-49); AST 24 U/L (17-59); African American GFR (CKD) >90 (>60 ml/min/1.73 sqM); Albumin 4.4 g/dL (3.5-5.0); Alkaline Phosphatase 77 U/L (38-126); Anion Gap 12 mmol/L; Blood Urea Nitrogen 9 mg/dL (9-20); Calcium 9.3 mg/dL (8.4-10.2); Carbon Dioxide 23 mmol/L (22-30); Chloride 108 mmol/L (98-107); Glucose 95 mg/dL (74-99); Non-African American GFR(CKD) >90 (>60 ml/min/1.73 sqM); Sodium 143 mmol/L (137-145); Total Bilirubin 0.3 mg/dL (0.2-1.3); Total Protein 7.1 g/dL (6.3-8.2)
[2023-08-14] MEDS ORDERED: MAG HYDROX/AL HYDROX/SIMETH 30 ML CUP PO PRN (21:23)
[2023-08-14] MEDS ORDERED: LORazepam 2 MG/ML INJ IM PRN (21:23)
[2023-08-14] MEDS ORDERED: ACETAMINOPHEN TAB 325 MG TAB PO PRN (21:23)
[2023-08-14] MEDS ORDERED: MAGNESIUM HYDROXIDE 2,400 MG/30 ML CUP PO PRN (21:23)
[2023-08-14] MEDS ORDERED: LORazepam 1 MG TAB PO PRN (21:32)
[2023-08-14] MEDS ORDERED: HALOPERIDOL LACTATE 5 MG/ML 1 ML VIAL IM PRN (21:33)
[2023-08-14 21:34] LABS: Appearance,Urine Clear (Clear); Bilirubin,Urine Negative (Negative); Blood,Urine Negative (Negative); Color,Urine Colorless; Glucose,Urine (UA) Negative (Negative); Ketones,Urine Negative (Negative); Leukocyte Esterase,Urine Negative (Negative); Nitrite,Urine Negative (Negative); PH, Urine 5.5 (5.0-8.0); Protein,Urine Negative (Negative); Specific Gravity,Urine 1.006 (1.001-1.035); Urobilinogen,Urine <2.0 mg/dL (<2.0)
[2023-08-14] MEDS ORDERED: haloperidoL 5 MG TAB PO PRN (21:34)
[2023-08-14 21:56] LABS: Amphetamine Screen,Urine Not Detected (NotDetected); Barbiturate Screen,Urine Not Detected (NotDetected); Benzodiazepines Screen,Urine Not Detected (NotDetected); Cocaine Screen,Urine Not Detected (NotDetected); Methadone Screen, Urine Not Detected (NotDetected); Opiate Screen,Urine Not Detected (NotDetected); Oxycodone Screen, Urine Not Detected (NotDetected); Phencyclidine Screen,Urine Not Detected (NotDetected); Tricyclic Antidepressant,Urine Not Detected (NotDetected); Urn Cannabinoid Scrn Detected (NotDetected)
--- NOTE | 2023-08-15 04:28 | P.CONS ---
History of Present Illness - Reason for Consult Consult date: 08/15/23 - History of Present Illness The patient is a 33-year-old male with a PMH of EtOH and tobacco abuse who presented to the emergency room with complaints of depression and suicidal ideation. The patient was admitted to the mental health unit where he was seen and evaluated. He reports that he has been struggling with his mental health for quite some time now and that he was having thoughts of suicide was prompted him to come to the emergency room. He denied any physical complaints at the time of interview. He reports ongoing alcohol use but states that he is now cutting down to a few beers a day with last beers prior to coming into the emergency room in the parking lot. He denied experiencing chest discomfort, shortness of breath, fever, chills, cough, nausea, vomiting, abdominal pain, diarrhea. Review of systems: Pertinent positives and negatives as discussed in HPI, a complete review of systems was performed and all other systems are negative. Physical examination: General: non toxic, no distress, appears at stated age, normal weight Derm: no unusual rashes/lesions, no unusual ecchymoses, warm, dry Head: atraumatic, normocephalic, symmetric Eyes: EOMI, no lid lag, anicteric sclera ENT: Nose and ears atraumatic, no thrush, no pharyngeal erythema Neck: trachea midline, supple Mouth: no lip lesion, mucus membranes moist Cardiovascular: S1S2 reg, no murmur, no edema Lungs: CTA bilateral, no rhonchi, no rales , no accessory muscle use Abdominal: soft, nontender to palpation, no guarding Ext: no gross muscle atrophy, no contractures, Neuro: No gross focal neuro deficits noted Psych: Alert, oriented, appropriate affect Assessment: Alcohol abuse Tobacco abuse, marijuana abuse Depression and suicidal ideation Imaging: None performed Data Review: Laboratory evaluation was reviewed with WBC count 7.1, hemoglobin 15.4, sodium 143, creatinine 0.91, with the UA unremarkable and urine toxicology positive for marijuana. Plan: Strongly advised patient on importance of cessation from marijuana, alcohol, tobacco abuse Defer management of depression and suicidal ideation to primary psychiatry service Thank you for allowing us to participate in the care of this patient. We will follow peripherally. Do not hesitate to contact us with questions. Someone can be reached from the [facility] hospitalist group at all hours of the day at [phone]. Past Medical History Past Medical History: No Reported History Additional Past Medical History / Comment(s): Etoh abuse History of Any Multi-Drug Resistant Organisms: None Reported Past Surgical History: Orthopedic Surgery Additional Past Surgical History / Comment(s): trauma surgery from accident Past Anesthesia/Blood Transfusion Reactions: No Reported Reaction Past Psychological History: Anxiety, Depression Smoking Status: Current every day smoker Past Alcohol Use History: Daily, Heavy Past Drug Use History: Marijuana - Past Family History family Additional Family Medical History / Comment(s): fathers side- prostate cancer. Maternal grandfather- heart disease Medications and Allergies Home Medications Medication Instructions Recorded Confirmed Type ARIPiprazole [Abilify] 20 mg PO DAILY 30 Days #30 tab 02/09/23 08/14/23 Rx FLUoxetine HCL [PROzac] 40 mg PO DAILY 30 Days #30 cap 02/09/23 08/14/23 Rx Disulfiram [Antabuse] 250 mg PO DAILY 08/14/23 08/14/23 History traZODone HCL [Desyrel] 100 mg PO HS PRN 08/14/23 08/14/23 History Allergies Allergy/AdvReac Type Severity Reaction Status Date / Time No Known Allergies Allergy Verified 08/14/23 23:19 Physical Exam Vitals: Vital Signs Temp Pulse Pulse Resp BP BP Pulse Ox 08/14/23 23:25 97.7 F 65 18 130/76 97 08/14/23 13:32 98.3 F 61 18 129/80 99 Intake and Output 08/14/23 08/14/23 08/15/23 14:59 22:59 06:59 Other: Weight 86.183 kg 81.2 kg Results CBC & Chem 7: 08/14/23 19:40 08/14/23 19:40 Labs: Abnormal Lab Results - Last 24 Hours (Table) 08/14/23 08/14/23 Range/Units 19:40 21:11 Chloride 108 H (98-107) mmol/L U Marijuana (THC) Screen Detected H (NotDetected)
[2023-08-15] MEDS: MULTIVITAMINS, THERA 1 EACH TAB PO SCH (08:41)
[2023-08-15] MEDS: NICOTINE 14MG/24HR PATCH TRANSDERM SCH (08:41)
[2023-08-15] MEDS: FOLIC ACID 1 MG TAB PO SCH (08:41)
[2023-08-15] MEDS: THIAMINE 100 MG TAB PO SCH (08:41)
[2023-08-15] MEDS: NON FORMULARY DRUG (Disulfiram 250 MG Tab) PO SCH (09:03)
[2023-08-15] MEDS: FLUoxetine HCL 20 MG CAP PO SCH (11:20)
--- NOTE | 2023-08-15 12:06 | P.HP ---
Psychiatric H&P - . H&P Date: 08/15/23 History & Physical: Allergies Allergy/AdvReac Type Severity Reaction Status Date / Time No Known Allergies Allergy Verified 08/14/23 23:19 Vital Signs Temp 97.4 F L 08/15/23 06:33 Pulse 62 08/15/23 06:33 Resp 14 08/15/23 06:33 BP 120/67 08/15/23 06:33 Pulse Ox 97 08/14/23 23:25 FiO2 Intake & Output 08/14/23 08/15/23 08/15/23 18:59 06:59 18:59 Weight 86.183 kg 81.2 kg Laboratory Last Values WBC 7.1 k/uL (3.8-10.6) 08/14/23 19:40 RBC 5.04 m/uL (4.30-5.90) 08/14/23 19:40 Hgb 15.4 gm/dL (13.0-17.5) 08/14/23 19:40 Hct 45.7 % (39.0-53.0) 08/14/23 19:40 MCV 90.8 fL (80.0-100.0) 08/14/23 19:40 MCH 30.5 pg (25.0-35.0) 08/14/23 19:40 MCHC 33.6 g/dL (31.0-37.0) 08/14/23 19:40 RDW 13.3 % (11.5-15.5) 08/14/23 19:40 Plt Count 254 k/uL (150-450) 08/14/23 19:40 MPV 7.4 08/14/23 19:40 Sodium 143 mmol/L (137-145) 08/14/23 19:40 Potassium 4.0 mmol/L (3.5-5.1) 08/14/23 19:40 Chloride 108 mmol/L (98-107) H 08/14/23 19:40 Carbon Dioxide 23 mmol/L (22-30) 08/14/23 19:40 Anion Gap 12 mmol/L 08/14/23 19:40 BUN 9 mg/dL (9-20) 08/14/23 19:40 Creatinine 0.91 mg/dL (0.66-1.25) 08/14/23 19:40 Est GFR (CKD-EPI)AfAm >90 (>60 ml/min/1.73 sqM) 08/14/23 19:40 Est GFR (CKD-EPI)NonAf >90 (>60 ml/min/1.73 sqM) 08/14/23 19:40 Glucose 95 mg/dL (74-99) 08/14/23 19:40 Calcium 9.3 mg/dL (8.4-10.2) 08/14/23 19:40 Total Bilirubin 0.3 mg/dL (0.2-1.3) 08/14/23 19:40 AST 24 U/L (17-59) 08/14/23 19:40 ALT 15 U/L (4-49) 08/14/23 19:40 Alkaline Phosphatase 77 U/L (38-126) 08/14/23 19:40 Total Protein 7.1 g/dL (6.3-8.2) 08/14/23 19:40 Albumin 4.4 g/dL (3.5-5.0) 08/14/23 19:40 TSH 0.435 mIU/L (0.465-4.680) L 08/15/23 09:57 Urine Color Colorless 08/14/23 21:11 Urine Appearance Clear (Clear) 08/14/23 21:11 Urine pH 5.5 (5.0-8.0) 08/14/23 21:11 Ur Specific Orient 1.006 (1.001-1.035) 08/14/23 21:11 Urine Protein Negative (Negative) 08/14/23 21:11 Urine Glucose (UA) Negative (Negative) 08/14/23 21:11 Urine Ketones Negative (Negative) 08/14/23 21:11 Urine Blood Negative (Negative) 08/14/23 21:11 Urine Nitrite Negative (Negative) 08/14/23 21:11 Urine Bilirubin Negative (Negative) 08/14/23 21:11 Urine Urobilinogen <2.0 mg/dL (<2.0) 08/14/23 21:11 Ur Leukocyte Esterase Negative (Negative) 08/14/23 21:11 Urine Opiates Screen Not Detected (NotDetected) 08/14/23 21:11 Ur Oxycodone Screen Not Detected (NotDetected) 08/14/23 21:11 Urine Methadone Screen Not Detected (NotDetected) 08/14/23 21:11 Ur Propoxyphene Screen Not Detected (NotDetected) 08/14/23 21:11 Ur Barbiturates Screen Not Detected (NotDetected) 08/14/23 21:11 U Tricyclic Antidepress Not Detected (NotDetected) 08/14/23 21:11 Ur Phencyclidine Scrn Not Detected (NotDetected) 08/14/23 21:11 Ur Amphetamines Screen Not Detected (NotDetected) 08/14/23 21:11 U Methamphetamines Scrn Not Detected (NotDetected) 08/14/23 21:11 U Benzodiazepines Scrn Not Detected (NotDetected) 08/14/23 21:11 Urine Cocaine Screen Not Detected (NotDetected) 08/14/23 21:11 U Marijuana (THC) Screen Detected (NotDetected) H 08/14/23 21:11 Coronavirus (PCR) Not Detected (Not Detectd) 08/14/23 19:40 08/15/23 12:00 IDENTIFYING DATA: Patient is a 33-year-old unemployed male who lives in a house by himself HPI: Patient presented to the hospital for "having suicidal thoughts, being depressed" states that he has had intermittent suicidal thoughts for the past few months. Since , they have been constant. States that the suicidal thoughts are passive without any intent or plan. Also reports intermittent depression for the past few months. States that since being discharged from the hospital, he has been taking all of his medications as prescribed. He states that he has had some relapses on alcohol. His longest period of relapse was when he was over 100 days sober and during that time his depression was significantly better. He states that he relapsed on because of the depression. Concurrently he denies any withdrawal symptoms. Patient denies any suicidal or homicidal ideations intent or plan currently. At this time patient denies any auditory or visual hallucinations. Patient denies any flight of ideas racing thoughts and increased in goal directed behavior. Reports some marijuana use which he is cutting down, and smoking 1 ppd. NO other substance use PAST PSYCHIATRIC HISTORY: bipolar II and alcohol use disorder, multiple admissions for SI, -has outpatient psychiaitrist Meds: disulfram, Prozac 40 and abilify 20, Past meds: trazodone, melatonin, Geodon, seroquel PMH:[denies] ALLERGIES: as per EMR CHEMICAL DEPENDENCY HISTORY: as per HPI FAMILY PSYCHIATRIC/SUBSTANCE USE HISTORY: Depression and anxiety in both parents, no substance use or suicide attempts SOCIAL HISTORY: No legal issues, does not have a job, lives in his house by himself MENTAL STATUS EXAM: General Appearance: 33-year-old male, appears older than stated age, dressed casually, in no acute distress Behavior: Patient is seated without any agitated behavior Speech: Patient's speech is [fluent and nonpressured.] Mood/Affect: Patient reports their mood is "fair" affect is non-congruent, constricted, but smiling and laughing at times Suicidality/Homicidality: Patient denies having any homicidal ideation intent or plan. [Denies any suicidal ideations intent or plan] Perceptions: Patient denies any visual hallucinations [and denies any auditory hallucinations] Though content/process: [There is no evidence of any delusional thought content and thought process is linear and goal-directed.] Memory and concentration: AOX3, grossly intact for the purposes of this session Judgment and insight: [poor] STRENGTHS/WEAKNESSES: strength is that patient is [resilient]. Weakness is that patient [has poor judgment and is impulsive] INTELLECT: [average] IMPRESSIONS: Bipolar II disorder, currently depressed ALcohol use disorder PLAN: -Patient is admitted under [voluntary] status to [facility]HU for stabilization of psychiatric symptoms and safety. -Medications : Increase prozac to 60 mg daily, consinue abilify 20 mg daily and disulfram 250 mg daily -Ativan [and Haldol] PRN for agitation/aggression [-Started thiamine, MVM for etoh use] [-CIWA protocol with Ativan PRN for ETOH withdrawal] [-Patient was counselled on substance abuse and desired to cut back on use and strongly encouraged to go to rehab after d/c] -Patient was informed of the risks, benefits and side effects of the medication and patient verbally consented to taking the medications -Internal Medicine consult to perform medical evaluation and physical. -NRT - [nicotine patch] -SW on board for discharge planning. Encourage patient to participate in groups to work on coping skills. []
[2023-08-15] MEDS: traZODone HCL 100 MG TAB PO PRN (22:51)
[2023-08-15 23:07] LABS: Chol/HDL Ratio 3.98 Ratio; LDL Cholesterol,Calculated 134.4 mg/dL (0.0-131.0); VLDL Calculation 16.76 mg/dL (5.00-40.00)
[2023-08-16] MEDS: FLUoxetine HCL 20 MG CAP PO SCH (08:37)
[2023-08-16] MEDS: THIAMINE 100 MG TAB PO SCH (08:37)
[2023-08-16] MEDS: MULTIVITAMINS, THERA 1 EACH TAB PO SCH (08:37)
[2023-08-16] MEDS: FOLIC ACID 1 MG TAB PO SCH (08:37)
[2023-08-16] MEDS: NICOTINE 14MG/24HR PATCH TRANSDERM SCH (08:37)
[2023-08-16] MEDS: NON FORMULARY DRUG (Disulfiram 250 MG Tab) PO SCH (08:38)
--- NOTE | 2023-08-16 11:15 | P.PN ---
Progress Note - Text Interval history: Patient was seen [wandering the hallways] and was directable and agreeable to speak with television writer. Denies withdrawal symptoms. At this time patient denies any suicidal or homicidal ideations intent or plan. Denies any Auditory or visual hallucinations. Patient denies any side effects from the medications and has been compliant with meds. Mental status exam: General Appearance: [Patient appears to be older than stated age is alert, directable, and cooperative.] Behavior: [No agitated behavior. Patient is calm and directable] Speech: Patient's speech is fluent and nonpressured. Mood/Affect: Mood is improving mildly, affect is congruent and constricted. Suicidality/Homicidality: Patient denies having any suicidal or homicidal ideation intent or plan. Perceptions: Patient denies any auditory or visual hallucinations. Though content/process: [There is no evidence of any delusional thought content and thought process is linear and goal-directed.] Memory and concentration: AOX3, grossly intact for the purposes of this session Judgment and insight: improving mildly Assessment/Plan: Continue with current diagnosis. Patient continues to meet criteria for inpatient psychiatric admission for symptom stabilization and safety.[Patient will be maintained on current psychotropic medication regimen.] Monitor for medication compliance and for any psychotropic medication side effects. Will continue to monitor ongoing response to treatment. Encouraged participation in milieu.
[2023-08-16] MEDS: traZODone HCL 100 MG TAB PO PRN (22:21)
[2023-08-17] MEDS: NON FORMULARY DRUG (Disulfiram 250 MG Tab) PO SCH (08:50)
[2023-08-17] MEDS: FOLIC ACID 1 MG TAB PO SCH (08:52)
[2023-08-17] MEDS: MULTIVITAMINS, THERA 1 EACH TAB PO SCH (08:52)
[2023-08-17] MEDS: NICOTINE 14MG/24HR PATCH TRANSDERM SCH (08:52)
[2023-08-17] MEDS: THIAMINE 100 MG TAB PO SCH (08:52)
[2023-08-17] MEDS: FLUoxetine HCL 20 MG CAP PO SCH (08:52)
--- NOTE | 2023-08-17 12:05 | P.PN ---
Progress Note - Text Progress Note Date: 08/17/23 Interval history: Patient was seen wandering the hallways and was directable and agreeable to s peak with comic book writer. Patient claims that he has only been sleeping about 5 or 6 hours at nighttime and was requesting that his trazodone increased. He states that he has been having mild improvement in his anxiety and also his mood. We spoke about other medications for cravings and he was agreeable to try naltrexone. States that he is trying to go to groups and participate as best as he can. At this time he is stating that he is not one to go to rehab. At this time patient denies any current suicidal or homicidal ideations intent or plan. Denies any Auditory or visual hallucinations. Patient denies any side effects from the medications and has been compliant with meds. Mental status exam: General Appearance: Patient appears to be older than stated age is alert, directable, and cooperative. Behavior: No agitated behavior. Patient is calm and directable Speech: Patient's speech is fluent and nonpressured. Fairly concrete Mood/Affect: Mood is improving mildly, affect is congruent and constricted. Suicidality/Homicidality: Patient denies having any suicidal or homicidal ideation intent or plan. Perceptions: Patient denies any auditory or visual hallucinations. Though content/process: There is no evidence of any delusional thought content and thought process is linear and goal-directed. Memory and concentration: AOX3, grossly intact for the purposes of this session Judgment and insight: improving mildly Assessment: Bipolar disorder, currently depressed ALcohol use disorder cannabis use disorder mild nicotine dependence PLAN: -Patient is admitted under voluntary status to [facility]HU for stabilization of psychiatric symptoms and safety. -Medications : continue prozac 60 mg daily, consinue abilify 20 mg daily, replace disulfiram with Naltrexone po 50 mg daily for etoh cravings. added melatonin 10 mg qhs for sleep. increase trazodone 150 mg qhs for insomnia. -Ativan and Haldol PRN for agitation/aggression -thiamine, MVM for etoh use -CIWA q6hr protocol with Ativan PRN for ETOH withdrawal -NRT - nicotine patch -SW on board for discharge planning. Encourage patient to participate in groups to work on coping skills. Patient is refusing rehab at this time. Likely discharge in 2-3 days.
[2023-08-17] MEDS: NALTREXONE HCL 50 MG TAB PO SCH (13:02)
[2023-08-17] MEDS: MELATONIN 5 MG TABLET PO SCH (22:03)
[2023-08-17] MEDS: traZODone HCL 50 MG TAB PO SCH (22:03)
[2023-08-18 06:41] VITALS: RESP 14
[2023-08-18] MEDS: MULTIVITAMINS, THERA 1 EACH TAB PO SCH (08:43)
[2023-08-18] MEDS: FOLIC ACID 1 MG TAB PO SCH (08:43)
[2023-08-18] MEDS: NICOTINE 14MG/24HR PATCH TRANSDERM SCH (08:43)
[2023-08-18] MEDS: THIAMINE 100 MG TAB PO SCH (08:43)
[2023-08-18] MEDS: FLUoxetine HCL 20 MG CAP PO SCH (08:43)
[2023-08-18] MEDS: NALTREXONE HCL 50 MG TAB PO SCH (08:43)
--- NOTE | 2023-08-18 09:54 | P.PN ---
Progress Note - Text Progress Note Date: 08/18/23 Interval history: Patient was seen wandering the hallways and was directable and agreeable to s peak with teletypewriter installer. The patient claims that he has been going to groups and finding them helpful. He is to be somewhat concrete however was directable during conversation and answer questions appropriately. States that he is sleeping a bit better with the increase in medications and also the melatonin. He is not reporting any side effects at this time. He states that his mood and anxiety (improving. He is not endorsing any withdrawal symptoms at this time and is vital signs appear to be fairly stable. States that he is trying to go to groups and participate as best as he can. At this time he is stating that he is not one to go to rehab and claims that he would like to get discharged back to his parents house tomorrow. At this time patient denies any current suicidal or homicidal ideations intent or plan. Denies any Auditory or visual hallucinations. Patient denies any side effects from the medications and has been compliant with meds. Mental status exam: General Appearance: Patient appears to be older than stated age is alert, directable, and cooperative. Behavior: No agitated behavior. Patient is calm and directable Speech: Patient's speech is fluent and nonpressured. Fairly concrete, improving Mood/Affect: Mood is improving mildly, affect is congruent and constricted. Suicidality/Homicidality: Patient denies having any suicidal or homicidal ideation intent or plan. Perceptions: Patient denies any auditory or visual hallucinations. Though content/process: There is no evidence of any delusional thought content and thought process is linear and goal-directed. Memory and concentration: AOX3, grossly intact for the purposes of this session Judgment and insight: improving mildly Assessment: Bipolar disorder, currently depressed ALcohol use disorder cannabis use disorder mild nicotine dependence PLAN: -Patient is admitted under voluntary status to [facility] for stabilization of psychiatric symptoms and safety. -Medications : continue prozac 60 mg daily, consinue abilify 20 mg daily, replace disulfiram with Naltrexone po 50 mg daily for etoh cravings. melatonin 10 mg qhs for sleep. trazodone 150 mg qhs for insomnia. -Ativan and Haldol PRN for agitation/aggression -thiamine, MVM for etoh use -CIWA discotninued as patient is not withdrawing. -NRT - nicotine patch -SW on board for discharge planning. Encourage patient to participate in groups to work on coping skills. Patient is refusing rehab at this time. Likely discharge tomorrow back to [facility] house.
[2023-08-18] MEDS: MELATONIN 5 MG TABLET PO SCH (21:43)
[2023-08-18] MEDS: traZODone HCL 50 MG TAB PO SCH (21:44)
[2023-08-19 07:19] VITALS: BP 125/65; PULSE 60; TEMP 97.5
[2023-08-19] MEDS: NICOTINE 14MG/24HR PATCH TRANSDERM SCH (08:51)
[2023-08-19] MEDS: FOLIC ACID 1 MG TAB PO SCH (08:52)
[2023-08-19] MEDS: NALTREXONE HCL 50 MG TAB PO SCH (08:52)
[2023-08-19] MEDS: MULTIVITAMINS, THERA 1 EACH TAB PO SCH (08:52)
[2023-08-19] MEDS: THIAMINE 100 MG TAB PO SCH (08:52)
[2023-08-19] MEDS: FLUoxetine HCL 20 MG CAP PO SCH (08:52)
--- NOTE | 2023-08-19 11:42 | P.PN ---
Subjective Progress Note Date: 08/19/23 Principal diagnosis: Assessment: Bipolar disorder, depressed type improved ALcohol use disorder chronic recurrent cannabis use disorder mild nicotine dependence Patient Name: Deyvi Moses Date of : 89 Patient Status: Inpatient Attending Provider: Rajinder Frank Date: Interval history: Patient was seen wandering the hallways and was directable and agreeable to speak with automotive service writer. The patient claims that he has been going to groups and finding them helpful. He is to be somewhat concrete however was directable during conversation and answer questions appropriately. States that he is sleeping a bit better with the increase in medications and also the melatonin. He is not reporting any side effects at this time. He states that his mood and anxiety (improving. He is not endorsing any withdrawal symptoms at this time and is vital signs appear to be fairly stable. At this time he is stating that he is not one to go to rehab and claims that he would like to get discharged back to his parents house today At this time patient denies any current suicidal or homicidal ideations intent or plan. Denies any Auditory or visual hallucinations. Patient denies any side effects from the medications and has been compliant with meds. Mental status exam: General Appearance: Patient appears to be older than stated age is alert, directable, and cooperative. Behavior: No agitated behavior. Patient is calm and directable Speech: Patient's speech is fluent and nonpressured. Fairly concrete, improving Mood/Affect: Mood is improving mildly, affect is congruent and constricted. Suicidality/Homicidality: Patient denies having any suicidal or homicidal ideation intent or plan. Perceptions: Patient denies any auditory or visual hallucinations. Though content/process: There is no evidence of any delusional thought content and thought process is linear and goal-directed. Memory and concentration: AOX3, grossly intact for the purposes of this session Judgment and insight: improving mildly Assessment: Adjustment disorder unspecified Bipolar disorder, stable ALcohol use disorder chronic recurrent cannabis use disorder mild nicotine dependence PLAN: Agree with the current treatment plan to discharge patient home to his parents and to recommend ongoing treatment with AA NA and other self-help substance abuse programs as well as to consider inpatient/outpatient follow-up treatment for substance abuse -Patient is admitted under voluntary status to [facility] for stabilization of psychiatric symptoms and safety. -Medications : continue prozac 60 mg daily, consinue abilify 20 mg daily, replace disulfiram with Naltrexone po 50 mg daily for etoh cravings. melatonin 10 mg qhs for sleep. trazodone 150 mg qhs for insomnia. -Ativan and Haldol PRN for agitation/aggression -thiamine, MVM for etoh use -CIWA discotninued as patient is not withdrawing. -NRT - nicotine patch -SW on board for discharge planning. Encourage patient to participate in groups to work on coping skills. As outpatient Patient is refusing rehab at this time. discharge today back to [facility] house. Pete Cho M.D. Objective - Vital Signs Vital signs: Vital Signs Temp 97.5 F L 08/19/23 06:52 Pulse 60 08/19/23 06:52 Resp 14 08/19/23 06:52 BP 125/65 08/19/23 06:52 Pulse Ox 96 08/19/23 06:52 FiO2 - Labs CBC & Chem 7: 08/14/23 19:40 08/14/23 19:40
--- NOTE | 2023-08-19 11:43 | P.DS ---
Providers Date of admission: 08/14/23 20:40 Attending physician: Rajinder Frank MD Consults: 08/14/23 21:23 Consult Physician Routine Consulting Provider: [facility] Consult Reason/Comments: medical management Do you want consulting provider notified?: Yes Primary care physician: Stated None Hospital Course: The patient claims that he has been going to groups and finding them helpful. He is to be somewhat concrete however was directable during conversation and answer questions appropriately. States that he is sleeping a bit better with the increase in medications and also the melatonin. He is not reporting any side effects at this time. He states that his mood and anxiety (improving. He is not endorsing any withdrawal symptoms at this time and is vital signs appear to be fairly stable. At this time he is stating that he is not one to go to rehab and claims that he would like to get discharged back to his parents house today At this time patient denies any current suicidal or homicidal ideations intent or plan. Denies any Auditory or visual hallucinations. Patient denies any side effects from the medications and has been compliant with meds. Mental status exam: General Appearance: Patient appears to be older than stated age is alert, directable, and cooperative. Behavior: No agitated behavior. Patient is calm and directable Speech: Patient's speech is fluent and nonpressured. Fairly concrete, improving Mood/Affect: Mood is improving mildly, affect is congruent and constricted. Suicidality/Homicidality: Patient denies having any suicidal or homicidal ideation intent or plan. Perceptions: Patient denies any auditory or visual hallucinations. Though content/process: There is no evidence of any delusional thought content and thought process is linear and goal-directed. Memory and concentration: AOX3, grossly intact for the purposes of this session Judgment and insight: improving mildly Assessment: Adjustment disorder unspecified Bipolar disorder, stable ALcohol use disorder chronic recurrent cannabis use disorder mild nicotine dependence PLAN: The patient was hospitalized for further evaluation and treatment. Patient does not exhibit any behavior dangerous to himself or others Patient has chosen not to go for the rehab and wants to continue further follow- up with an outpatient Agree with the current treatment plan to discharge patient home to his parents and to recommend ongoing treatment with AA and other self-help substance abuse programs as well as to consider inpatient/outpatient follow-up treatment for substance abuse -Patient is admitted under voluntary status to [facility] for stabilization of psychiatric symptoms and safety. -Medications : continue prozac 60 mg daily, consinue abilify 20 mg daily, replace disulfiram with Naltrexone po 50 mg daily for etoh cravings. melatonin 10 mg qhs for sleep. trazodone 150 mg qhs for insomnia. -Ativan and Haldol PRN for agitation/aggression -thiamine, MVM for etoh use -CIWA discotninued as patient is not withdrawing. -NRT - nicotine patch - on board for discharge planning. Encourage patient to participate in groups to work on coping skills. As outpatient Patient is refusing rehab at this time. discharge today back to [facility]. Pete Cho M.D. Patient Condition at Discharge: Stable Plan - Discharge Summary Discharge Rx Participant: Yes New Discharge Prescriptions: No Action FLUoxetine HCL [PROzac] 40 mg PO DAILY 30 Days #30 cap Disulfiram [Antabuse] 250 mg PO DAILY traZODone HCL [Desyrel] 100 mg PO HS PRN PRN Reason: Insomnia ARIPiprazole [Abilify] 20 mg PO DAILY 30 Days #30 tab Discharge Medication List ARIPiprazole [Abilify] 20 mg PO DAILY 30 Days #30 tab 02/09/23 [Rx] FLUoxetine HCL [PROzac] 40 mg PO DAILY 30 Days #30 cap 02/09/23 [Rx] Disulfiram [Antabuse] 250 mg PO DAILY 08/14/23 [History] traZODone HCL [Desyrel] 100 mg PO HS PRN 08/14/23 [History] Follow up Appointment(s)/Referral(s): [facility] [Outside] - 08/21/23 10:00 am (08-21-23 @ 10am with Kali/ 08-31-23 @ 1:[address] Ponce) None,Stated [Primary Care Provider] - 1-2 days Activity/Diet/Wound Care/Special Instructions: Avoid the use of street drugs and alcohol. Take all medications as prescribed. When you are in need of refills on your medications, please contact your medical provider and/or outpatient psychiatrist/provider to have this done. Please go to your scheduled outpatient appointment for aftercare treatment. If symptoms return or become worse, call the crisis line at and/or go to the nearest emergency room for evaluation. National Suicide Hotline 988. Discharge/Stand Alone Forms: SHARMIN Francois
== END 2023-08-19 14:08 | disposition home or self-care (01) | DRG 753 ==
LOC: EC 13:27 → 3MHU 20:40
PROVIDERS: ADMIT Psychiatry & Neurology Psychiatry; ATTEND Psychiatry & Neurology Psychiatry
DX: F31.30 Bipolar disorder, current episode depressed, mild or moderate severity, unspecified (principal); R45.851 Suicidal ideations; F10.20 Alcohol dependence, uncomplicated; Z11.52 Encounter for screening for COVID-19; Z28.310 Unvaccinated for COVID-19; F43.20 Adjustment disorder, unspecified; F12.10 Cannabis abuse, uncomplicated; G47.00 Insomnia, unspecified; F17.210 Nicotine dependence, cigarettes, uncomplicated; Z71.6 Tobacco abuse counseling; Z79.899 Other long term (current) drug therapy; Z71.51 Drug abuse counseling and surveillance of drug abuser; Z71.41 Alcohol abuse counseling and surveillance of alcoholic
CPT/HCPCS: 36415; 80053; 80061; 80306; 81003; 82075; 83036; 84443; 85027; 87635; 99285